=== PATIENT | female | born 1960 | race Caucasian/White ===

== ENCOUNTER 2017-04-08 13:12 | Inpatient (IN) | payer MEDICAID ==
--- NOTE | 2017-04-08 14:01 | EDM.PDOC ---
{null, ED HPI GENERAL MEDICAL PROBLEM - General Chief Complaint: Respiratory Problem Stated Complaint: SOB/SWELLING Time Seen by Provider: 04/08/17 13:57 Source of Information: Reports: Patient, Family History Limitations: Reports: No Limitations - History of Present Illness INITIAL COMMENTS - FREE TEXT/NARRATIVE: This 56 yo female patient reports to the ED with increased shortness of breath, profound weakness and no bowel movement in 45 days. The patient reports she has not been eating or drinking well over the past few months. The patient reports she has not been drinking alcohol, but has a history of alcohol use/abuse. The patient's sister reports the patient has not been out of her house in weeks. The patient's relative has been bringing her josesito on a regular basis. The patient is no longer to take care of herself or her pets. The patient reports she has noticed swelling in her feet (reports her shoes do not fit). The patient was seen in the ED 1 year ago with a GI bleed, but left against medical advice. The patient does not see a regular provider and has not been seen by a healthcare professional since her last visit in the ED (03/26/16). Onset: Gradual Duration: Week(s):, Constant, Getting Worse Location: Reports: Chest, Abdomen, Generalized Quality: Reports: Dull Severity: Severe Improves with: Reports: None Worsens with: Reports: None Associated Symptoms: Reports: Shortness of Breath, Weakness - Related Data Allergies Allergy/AdvReac Type Severity Reaction Status Date / Time No Known Allergies Allergy Verified 04/08/17 14:26 Home Meds: Home Meds Amlodipine 10 mg PO DAILY 07/02/15 [History] Humira 40 mg IM ASDIRECTED 07/02/15 [History] Lisinipril 40 mg PO DAILY 07/02/15 [History] Methotrexate 4 mg PO WEEKLY 07/02/15 [History] predniSONE [Prednisone] 1 tab PO DAILY 07/02/15 [History] Calcium/Vit B12/FA/Pyridoxine [Folic Acid-Vit B6-Vit B12 Tab] 1 each PO DAILY [History] traMADol [Ultram] 50 mg PO Q6H PRN 03/26/16 [History] Past Medical History Cardiovascular History: Reports: Hypertension Genitourinary History: Reports: None Other OB/BYN History: Had hysterectory about 10 years ago Musculoskeletal History: Reports: Other (See Below) Other Musculoskeletal History: hx knee fx - Past Surgical History Female Surgical History: Reports: Hysterectomy Social & Family History - Tobacco Use Smoking Status *Q: Current Every Day Smoker Years of Tobacco use: 30 Packs/Tins Daily: 1 Used Tobacco, but Quit: No Second Hand Smoke Exposure: No - Alcohol Use Days Per Week of Alcohol Use: 4 Number of Drinks Per Day: 1 Total Drinks Per Week: 4 - Recreational Drug Use Recreational Drug Use: No ED ROS GENERAL - Review of Systems Review Of Systems: ROS reveals no pertinent complaints other than HPI. ED EXAM, GENERAL - Physical Exam Exam: See Below Exam Limited By: No Limitations General Appearance: Alert, WD/WN, Severe Distress, Thin Eye Exam: Bilateral Eye: EOMI, Normal Inspection, PERRL Ears: Normal External Exam, Normal Canal, Hearing Grossly Normal, Normal TMs Nose: Normal Inspection, Normal Mucosa, No Blood Throat/Mouth: Normal Inspection, Normal Lips, Normal Teeth, Normal Gums, Normal Oropharynx, Normal Voice, No Airway Compromise Head: Atraumatic, Normocephalic Neck: Normal Inspection, Supple, Non-Tender, Full Range of Motion Respiratory/Chest: Rhonchi (diffuse), Wheezing (through out) Cardiovascular: Normal Peripheral Pulses, Regular Rate, Rhythm, No Edema, No Gallop, No JVD, No Murmur, No Rub GI/Abdominal: Normal Bowel Sounds, Soft, Non-Tender, No Organomegaly, No Distention, No Abnormal Bruit, No Mass (Female) Exam: Deferred Rectal (Female) Exam: Deferred Back Exam: Normal Inspection, Full Range of Motion, NT Extremities: Normal Inspection, Normal Range of Motion, Non-Tender, Normal Capillary Refill, No Pedal Edema Neurological: Alert, Oriented, CN II-XII Intact, Normal Cognition Psychiatric: Depressed Mood, Flat Affect Skin Exam: Warm, Dry, Intact, Normal Color, No Rash Lymphatic: No Adenopathy Course - Vital Signs Last Recorded V/S: Last Vital Signs Temp 35.9 C 04/08/17 13:30 Pulse 96 04/08/17 13:30 Resp 24 H 04/08/17 13:30 BP 113/85 04/08/17 13:30 Pulse Ox 96 04/08/17 13:30 - Orders/Labs/Meds Orders: Active Orders 24 hr Category Date Time Status EKG Documentation Completion [RC] URGENT Care 04/08/17 14:51 Active Chest 2V [CR] Urgent Exams 04/08/17 13:49 Taken CULTURE BLOOD [BC] Stat Lab 04/08/17 14:03 Received CULTURE URINE [RM] Stat Lab 04/08/17 15:00 Received Potassium Chloride [KCl 10 MEQ in Water 100 ML] 10 meq Med 04/08/17 16:26 Ordered Premix Bag 1 bag IV ONETIME Sodium Chloride 0.9% [Normal Saline] 1,000 ml Med 04/08/17 16:26 Ordered IV .BOLUS Labs: Laboratory Tests 04/08/17 04/08/17 04/08/17 Range/Units 14:03 14:03 14:03 WBC 4.6 L (5.0-10.0) 10^3/uL RBC 3.30 L (4.2-5.4) 10^6/uL Hgb 11.8 L (12.0-16.0) g/dL Hct 34.8 L (37.0-47.0) % MCV 105.5 H (80-100) fL MCH 35.8 H (27.0-34.0) pg MCHC 33.9 (33.0-35.0) g/dL Plt Count 117 L (150-450) 10^3/uL Neut % (Auto) 61.9 (42.2-75.2) % Lymph % (Auto) 22.9 (20.5-50.1) % [place] % (Auto) 12.6 H (2-8) % Eos % (Auto) 1.7 (1.0-3.0) % Baso % (Auto) 0.9 (0.0-1.0) % Sodium 134 L (135-145) mmol/L Potassium 2.4 L (3.6-5.0) mmol/L Chloride 93 L (101-111) mmol/L Carbon Dioxide 26.0 (21.0-31.0) mmol/L Anion Gap 17.4 BUN 6 L (7-18) mg/dL Creatinine 0.6 (0.6-1.3) mg/dL Est Cr Clr Drug Dosing 92.15 mL/min Estimated GFR (MDRD) > 60 BUN/Creatinine Ratio 10.00 Glucose 82 (74-105) mg/dL Lactic Acid (0.5-2.2) mmol/L Calcium 8.5 (8.4-10.2) mg/dl Magnesium 1.3 L (1.8-2.5) mg/dL Total Bilirubin 2.6 H (0.2-1.0) mg/dL AST 433 H (10-42) IU/L ALT 110 H (10-60) IU/L Alkaline Phosphatase 328 H (42-121) IU/L Ammonia 21 (11-35) umol/L Troponin I (0.00-0.02) ng/ml Total Protein 6.8 (6.7-8.2) g/dl Albumin 3.1 L (3.2-5.5) g/dl Globulin 3.7 Albumin/Globulin Ratio 0.84 Amylase 91 (28-100) U/L Lipase 153 H (22-51) U/L Urine Color (YELLOW) Urine Appearance (CLEAR) Urine pH (5.0-9.0) Ur Specific [place] (1.005-1.030) Urine Protein (NEGATIVE) Urine Glucose (UA) (NEGATIVE) Urine Ketones (NEGATIVE) mg/dL Urine Occult Blood (NEGATIVE) Urine Nitrite (NEGATIVE) Urine Bilirubin (NEGATIVE) Urine Urobilinogen (0.2-1.0) mg/dL Ur Leukocyte Esterase (NEGATIVE) Urine RBC /HPF Urine WBC (0-5/HPF) /HPF Ur Epithelial Cells /HPF Urine Bacteria (0-FEW/HPF) /HPF Urine Mucus /LPF Urinalysis Comment Salicylates < 4 Urine Opiates Screen (NEGATIVE) Ur Oxycodone Screen (NEGATIVE) Urine Methadone Screen (NEGATIVE) Acetaminophen < 10 Ur Barbiturates Screen (NEGATIVE) U Tricyclic Antidepress (NEGATIVE) Ur Phencyclidine Scrn (NEGATIVE) Ur Amphetamine Screen (NEGATIVE) U Methamphetamines Scrn (NEGATIVE) Urine MDMA Screen (NEGATIVE) U Benzodiazepines Scrn (NEGATIVE) Urine Cocaine Screen (NEGATIVE) U Marijuana (THC) Screen (NEGATIVE) Ethyl Alcohol < 5 mg/dL 04/08/17 04/08/17 04/08/17 Range/Units 14:03 14:03 14:52 WBC (5.0-10.0) 10^3/uL RBC (4.2-5.4) 10^6/uL Hgb (12.0-16.0) g/dL Hct (37.0-47.0) % MCV (80-100) fL MCH (27.0-34.0) pg MCHC (33.0-35.0) g/dL Plt Count (150-450) 10^3/uL Neut % (Auto) (42.2-75.2) % Lymph % (Auto) (20.5-50.1) % [place] % (Auto) (2-8) % Eos % (Auto) (1.0-3.0) % Baso % (Auto) (0.0-1.0) % Sodium (135-145) mmol/L Potassium (3.6-5.0) mmol/L Chloride (101-111) mmol/L Carbon Dioxide (21.0-31.0) mmol/L Anion Gap BUN (7-18) mg/dL Creatinine (0.6-1.3) mg/dL Est Cr Clr Drug Dosing mL/min Estimated GFR (MDRD) BUN/Creatinine Ratio Glucose (74-105) mg/dL Lactic Acid 1.9 (0.5-2.2) mmol/L Calcium (8.4-10.2) mg/dl Magnesium (1.8-2.5) mg/dL Total Bilirubin (0.2-1.0) mg/dL AST (10-42) IU/L ALT (10-60) IU/L Alkaline Phosphatase (42-121) IU/L Ammonia (11-35) umol/L Troponin I < 0.02 (0.00-0.02) ng/ml Total Protein (6.7-8.2) g/dl Albumin (3.2-5.5) g/dl Globulin Albumin/Globulin Ratio Amylase (28-100) U/L Lipase (22-51) U/L Urine Color (YELLOW) Urine Appearance (CLEAR) Urine pH (5.0-9.0) Ur Specific [place] (1.005-1.030) Urine Protein (NEGATIVE) Urine Glucose (UA) (NEGATIVE) Urine Ketones (NEGATIVE) mg/dL Urine Occult Blood (NEGATIVE) Urine Nitrite (NEGATIVE) Urine Bilirubin (NEGATIVE) Urine Urobilinogen (0.2-1.0) mg/dL Ur Leukocyte Esterase (NEGATIVE) Urine RBC /HPF Urine WBC (0-5/HPF) /HPF Ur Epithelial Cells /HPF Urine Bacteria (0-FEW/HPF) /HPF Urine Mucus /LPF Urinalysis Comment Salicylates Urine Opiates Screen Negative (NEGATIVE) Ur Oxycodone Screen Negative (NEGATIVE) Urine Methadone Screen Negative (NEGATIVE) Acetaminophen Ur Barbiturates Screen Negative (NEGATIVE) U Tricyclic Antidepress Negative (NEGATIVE) Ur Phencyclidine Scrn Negative (NEGATIVE) Ur Amphetamine Screen Negative (NEGATIVE) U Methamphetamines Scrn Negative (NEGATIVE) Urine MDMA Screen Negative (NEGATIVE) U Benzodiazepines Scrn Negative (NEGATIVE) Urine Cocaine Screen Negative (NEGATIVE) U Marijuana (THC) Screen Negative (NEGATIVE) Ethyl Alcohol mg/dL 04/08/17 Range/Units 14:52 WBC (5.0-10.0) 10^3/uL RBC (4.2-5.4) 10^6/uL Hgb (12.0-16.0) g/dL Hct (37.0-47.0) % MCV (80-100) fL MCH (27.0-34.0) pg MCHC (33.0-35.0) g/dL Plt Count (150-450) 10^3/uL Neut % (Auto) (42.2-75.2) % Lymph % (Auto) (20.5-50.1) % [place] % (Auto) (2-8) % Eos % (Auto) (1.0-3.0) % Baso % (Auto) (0.0-1.0) % Sodium (135-145) mmol/L Potassium (3.6-5.0) mmol/L Chloride (101-111) mmol/L Carbon Dioxide (21.0-31.0) mmol/L Anion Gap BUN (7-18) mg/dL Creatinine (0.6-1.3) mg/dL Est Cr Clr Drug Dosing mL/min Estimated GFR (MDRD) BUN/Creatinine Ratio Glucose (74-105) mg/dL Lactic Acid (0.5-2.2) mmol/L Calcium (8.4-10.2) mg/dl Magnesium (1.8-2.5) mg/dL Total Bilirubin (0.2-1.0) mg/dL AST (10-42) IU/L ALT (10-60) IU/L Alkaline Phosphatase (42-121) IU/L Ammonia (11-35) umol/L Troponin I (0.00-0.02) ng/ml Total Protein (6.7-8.2) g/dl Albumin (3.2-5.5) g/dl Globulin Albumin/Globulin Ratio Amylase (28-100) U/L Lipase (22-51) U/L Urine Color Brown (YELLOW) Urine Appearance Turbid (CLEAR) Urine pH 7.0 (5.0-9.0) Ur Specific [place] 1.020 (1.005-1.030) Urine Protein >=300 H (NEGATIVE) Urine Glucose (UA) 100 H (NEGATIVE) Urine Ketones 40 H (NEGATIVE) mg/dL Urine Occult Blood Negative (NEGATIVE) Urine Nitrite Positive H (NEGATIVE) Urine Bilirubin Large H (NEGATIVE) Urine Urobilinogen >=8.0 H (0.2-1.0) mg/dL Ur Leukocyte Esterase Negative (NEGATIVE) Urine RBC 0-5 /HPF Urine WBC 0-5 (0-5/HPF) /HPF Ur Epithelial Cells Many H /HPF Urine Bacteria Moderate H (0-FEW/HPF) /HPF Urine Mucus Moderate H /LPF Urinalysis Comment Salicylates Urine Opiates Screen (NEGATIVE) Ur Oxycodone Screen (NEGATIVE) Urine Methadone Screen (NEGATIVE) Acetaminophen Ur Barbiturates Screen (NEGATIVE) U Tricyclic Antidepress (NEGATIVE) Ur Phencyclidine Scrn (NEGATIVE) Ur Amphetamine Screen (NEGATIVE) U Methamphetamines Scrn (NEGATIVE) Urine MDMA Screen (NEGATIVE) U Benzodiazepines Scrn (NEGATIVE) Urine Cocaine Screen (NEGATIVE) U Marijuana (THC) Screen (NEGATIVE) Ethyl Alcohol mg/dL Meds: Medications Discontinued Medications Generic Name Dose Route Start Last Admin Trade Name Vianca PRN Reason Stop Dose Admin Potassium Chloride 10 meq/ 100 mls @ 100 mls/hr 04/08/17 14:45 04/08/17 14:59 Premix IV 04/08/17 15:44 100 mls/hr ONETIME ONE Administration Sodium Chloride 1,000 mls @ 999 mls/hr 04/08/17 14:45 04/08/17 14:59 Normal Saline IV 04/08/17 15:45 999 mls/hr .BOLUS ONE Administration Departure - Departure Time of Disposition: 16:27 Disposition: Home, Self-Care 01 Condition: poor Clinical Impression: Hypokalemia, Generalized weakness - Discharge Information Forms: ED Department Discharge Care Plan Goals: Discussed the history, examination, x-ray and lab results with Dr. Stinson. Dr. Stinson accepted the patient for continued evaluation and management as an inpatient at [facility]. - My Orders Last 24 Hours: My Active Orders 04/08/17 13:49 Chest 2V [CR] Urgent 04/08/17 14:03 CULTURE BLOOD [BC] Stat 04/08/17 14:51 EKG Documentation Completion [RC] URGENT 04/08/17 15:00 CULTURE URINE [RM] Stat 04/08/17 16:26 Potassium Chloride [KCl 10 MEQ in Water 100 ML] 10 meq Premix Bag 1 bag IV ONETIME Sodium Chloride 0.9% [Normal Saline] 1,000 ml IV .BOLUS - Assessment/Plan Last 24 Hours: My Active Orders 04/08/17 13:49 Chest 2V [CR] Urgent 04/08/17 14:03 CULTURE BLOOD [BC] Stat 04/08/17 14:51 EKG Documentation Completion [RC] URGENT 04/08/17 15:00 CULTURE URINE [RM] Stat 04/08/17 16:26 Potassium Chloride [KCl 10 MEQ in Water 100 ML] 10 meq Premix Bag 1 bag IV ONETIME Sodium Chloride 0.9% [Normal Saline] 1,000 ml IV .BOLUS }
[2017-04-08 14:35] LABS: CHLORIDE,CL 93 mmol/L (101-111); SODIUM,NA 134 mmol/L (135-145)
[2017-04-08 14:42] LABS: ACETAMINOPHEN < 10
[2017-04-08] MEDS ORDERED: Sodium Chloride 0.9% 1,000 ML IV ONE ×2 (14:45→16:26)
[2017-04-08] MEDS ORDERED: Potassium Chloride 10 MEQ in Premix Bag 1 BAG IV ONE ×2 (14:45→16:26)
[2017-04-08] MEDS ORDERED: Ondansetron 4 MG Tab.DIS PO PRN (18:13)
[2017-04-08] MEDS ORDERED: traMADol 50 MG Tab PO PRN (18:17)
[2017-04-08] MEDS ORDERED: Sodium Chloride 0.9% with KCl 1,000 ML IV SCH (18:30)
[2017-04-08] MEDS: Heparin Sodium 5,000 Units/ML Vial SUBCUT SCH (20:33)
--- NOTE | 2017-04-09 00:15 | HP ---
{null, CHIEF COMPLAINT: Increasing weakness, tiredness. HISTORY OF PRESENT ILLNESS: Ms. Ladonna Roberts is a 56-year-old female with a medical history significant for hypertension, hyperlipidemia, history of depression, chronic low back pain, history of migraine headaches in the past, rheumatoid arthritis as per the chart, chronic alcohol use, chronic tobacco use presented to the ER after her sister helped her come to the ER while she was complaining of increasing weakness, tiredness. She has not gotten out of the house for couple of weeks now, and family members have been helping her to get josesito at home. While in the emergency room, she was noted to have hypokalemia, hypomagnesemia, hyponatremia, elevated liver enzymes suggestive of hepatitis needing admission to the hospital. At this time, the patient complains of increasing weakness and tiredness. She grades the weakness as 7/10 in intensity, which gets aggravated on exertion, relieved with rest. Not associated with any nausea or vomiting. Denies any chest pain. No shortness of breath. No abdominal pain. No diarrhea. The patient claims that she has not moved her bowels in the last 45 days. She has not eaten well in the last few weeks as she is not feeling hungry. She has been drinking at least 2 shots of josesito each day, the last drink was 3 to 4 days back as per the patient, she smokes at least 1 pack of cigarettes a day. She denies any fevers or chills. No cough with sputum. No headaches. No changes in the vision. No gait disturbance as per the patient. The patient denied any history of chest pains on exertion. No history of dyspnea on exertion. No history of orthopnea or paroxysmal nocturnal dyspnea. The patient denied any history of hematemesis, hematochezia, or melenic stools. Normal bowel and bladder habits otherwise. REVIEW OF SYSTEMS: A complete review of systems including skin, ear, nose, and throat, cardiovascular system, respiratory system, gastrointestinal system, genitourinary system, hematology, oncology, neurology, allergy, immunology, constitutional all evaluated and were negative except for the above-said notes. PAST MEDICAL HISTORY: Significant for hypertension, hyperlipidemia, migraine headache, cervical degenerative joint disease, depression, back pain, chronic tobacco use, chronic alcohol use, rheumatoid arthritis as per the chart. PAST SURGICAL HISTORY: Significant for total abdominal hysterectomy with bilateral salpingo-oophorectomy. SOCIAL HISTORY: The patient has been smoking for several years 1 pack of cigarettes a day. She drinks alcohol almost every day. Two shots of joessito each day. Last drink was 3 days back. ALLERGIC HISTORY: No known drug allergies. FAMILY HISTORY: Significant for heart disease in her father, breast cancer in her sister, heart disease in her brother, stroke in her grandfather. PHYSICAL EXAMINATION: VITAL SIGNS: Temperature of 99.1, pulse of 100, blood pressure 131/96, respiratory rate of 20, saturating at 100% on room air. GENERAL APPEARANCE: The patient is well oriented to time, place, and person. Follows commands spontaneously. CARDIOVASCULAR SYSTEM: S1 and S2 heard with normal intensity. No gallops. RESPIRATORY: Clear to auscultation bilaterally. No wheeze. No crepitations. ABDOMEN: Soft. Bowel sounds positive. Nontender. No rigidity. EXTREMITIES: No edema in bilateral lower extremities. NEUROLOGY: No gross focal neurological deficits. HOME MEDICATIONS: Reviewed shows: 1. Ultram 50 mg q.6 hours as needed for pain. 2. Prednisone 5 mg daily. 3. Lisinopril 40 mg daily. 4. Humira 40 mg IM as directed. 5. Norvasc 10 mg daily. LABS: WBC 4.6, hemoglobin 11.8, hematocrit 34.8, and platelet count 117. Sodium 134, potassium 2.4, chloride 93, bicarb 26, BUN 6, creatinine 0.6, glucose 82, lactic acid 1.9, total bilirubin 2.6, AST 433, ALT 110, alkaline phosphatase 328, ammonia 21. Troponin less than 0.02. Amylase 91 and lipase 153. Urinalysis positive for nitrites, large bilirubin, leukocyte esterase, negative wbc's 0 to 5, moderate bacteria. Blood alcohol level less than 5. ASSESSMENT: 1. Generalized weakness. 2. Acute hyponatremia. 3. Hypokalemia. 4. Hypomagnesemia. 5. Anemia. 6. Chronic alcohol abuse. 7. Chronic tobacco use. 8. Hypertension. 9. Hyperlipidemia. 10.Rheumatoid arthritis. PLAN: 1. The patient presents with increasing weakness, and is noted to have metabolic derangement with hyponatremia, hypokalemia, and magnesemia. We will have her on IV normal saline with potassium chloride and replace with potassium chloride and magnesium. Recheck a basic metabolic panel along with magnesium and phosphorus in the a.m. We will closely follow. 2. Anemia. The patient is noted to have anemia. This could be anemia of chronic disease. She had history of GI bleed in the past, but not recently. We will obtain iron, folate, B12 levels, and a peripheral smear, and replace as needed. 3. History of chronic alcohol use. The patient is educated about alcohol cessation. Strongly encouraged her to quit drinking which she understands and verbalized the same. She was also educated about tobacco cessation. We will have her on nicotine transdermal patch if needed while in the hospital. 4. Hepatitis. The patient is noted to have elevated LFTs. This is mainly from her alcoholic hepatitis. We will recheck a CMP in the a.m. 5. Rheumatoid arthritis. The patient is noted to be on Humira and prednisone. We will continue the same if the patient has been taking that at home. She denies any joint pains at this time. No acute flare-up noted at this time. 6. DVT prophylaxis. We will have her on heparin 5000 subcu q.12 hourly. Given her history of GI bleed in the past, we will cautiously use SCDs for DVT prophylaxis. 7. Hypertension. The patient's blood pressure seems to be in acceptable range. She is noted to be on lisinopril. Continue the same. Avoid any hypotensive episodes. 8. Code status. The patient wants to be DNR/DNI. 9. Discussed with the patient regarding the plan of care. Discussed with Valente Rene from the ER regarding the plan of care. Reviewed the labs and medications. Reviewed the old charts. [facility] /[id number] }
[2017-04-09] MEDS: Sodium Chloride 0.9% with KCl 1,000 ML IV SCH ×2 (04:05→19:21)
[2017-04-09] MEDS: Pantoprazole 40 MG Tab.CR PO SCH (06:16)
[2017-04-09 07:05] LABS: CHLORIDE,CL 96 mmol/L (101-111); SODIUM,NA 131 mmol/L (135-145)
--- NOTE | 2017-04-09 08:16 | CR ---
{null, CLINICAL HISTORY: 56-year-old female complaining of shortness of breath. INTERPRETATION: Mild scoliosis dorsal spine. Slight shaggy accentuation central lung markings with s ome mild air trapping suggesting reactive airway disease but no lung mass, hilar lymphadenopathy or focal lobar pneumonia. Normal cardiac silhouette without alveolar edema or dependent effusion. No atelectasis/collapse. No pneumothorax. CONCLUSION: Mild reactive airway disease. Asthmatic? Smoker ?. No signs of heart failure or lobar pneumonia. }
[2017-04-09] MEDS ORDERED: Lisinopril 20 MG Tab PO SCH (09:00)
[2017-04-09] MEDS: Heparin Sodium 5,000 Units/ML Vial SUBCUT SCH ×2 (09:16→21:18)
[2017-04-09] MEDS: predniSONE 5 MG Tab PO SCH (09:16)
[2017-04-09] MEDS: amLODIPine 5 MG Tab PO SCH (09:17)
[2017-04-09] MEDS: Potassium Chloride 10 MEQ in Premix Bag 1 BAG IV SCH ×4 (11:59→15:38)
[2017-04-09] MEDS: Nicotine 14 MG/24 Hr Patch TRDERM SCH (12:06)
--- NOTE | 2017-04-09 12:25 | PN ---
{null, DATE: 04/09/2017 SUBJECTIVE: Ms. Ladonna Roberts is a 56-year-old female with medical history significant for hypertension, hyperlipidemia, depression, chronic low back pain, migraine headaches in the past and rheumatoid arthritis, chronic alcohol use and chronic tobacco use was admitted to the hospital with complaints of increasing weakness, tiredness, and electrolyte imbalance and hepatitis from her alcohol intake. For the past 24 hours, the patient was continued on IV fluids and required potassium chloride and magnesium supplements. She denies any ongoing chest pain. No shortness of breath. No abdominal pain. No nausea. No vomiting. No diarrhea. No fevers. No chills overnight. REVIEW OF SYSTEMS: Cardiovascular, respiratory, gastrointestinal, neurology, constitutional were all evaluated. PHYSICAL EXAMINATION: Vital signs: Temperature of 97.7, pulse of 80, blood pressure of 101/70, respiratory rate of 20, saturating 97% on room air. General Appearance: Patient is well oriented to time, place, and person. Follows commands spontaneously. Cardiovascular System: S1 and S2 heard with normal intensity. No gallops. Respiratory: Clear to auscultation bilaterally. No wheeze. No crepitations. Abdomen: Soft. Bowel sounds positive. Nontender. No rigidity. Extremities: No edema bilateral lower extremities. Neurology: No gross focal neurological deficit. Skin: No acute rash noted on the skin. MEDICATIONS: Include: 1. Norvasc 10 mg daily. 2. Heparin 5000 subcu q.12 hourly. 3. Lisinopril 10 mg daily. 4. Magnesium oxide 500 mg twice a day. 5. Zofran 4 mg every 4 hours as needed for nausea. 6. Protonix 40 mg daily. 7. Potassium chloride 20 mEq twice a day. 8. Prednisone 5 mg daily. 9. Neutra-Phos 250 mg 3 times a day. 10.Tramadol 50 mg every 6 hours as needed for pain. LABS: Include WBC 3.8, hemoglobin 10.1, hematocrit 29.4, MCV 106.1, and MCH 36.5. Sodium 131, potassium 2.7, chloride 96, bicarb 25, BUN 4, creatinine 0.4, and glucose 78. Phosphorus 1.8, calcium 7.4, magnesium 1.3, and albumin 2.5. ASSESSMENT: 1. Chronic alcohol abuse. 2. Malnutrition from poor oral intake. 3. Hyponatremia. 4. Hypokalemia. 5. Hypomagnesemia. 6. Hypophosphatemia. 7. Hypertension. 8. Hyperlipidemia. 9. Rheumatoid arthritis. 10.Chronic tobacco use. PLAN: 1. Generalized debility. The patient was admitted with generalized debility along with multiple electrolyte imbalance including hyponatremia, hypokalemia, hypomagnesemia, and hypophosphatemia. The patient will be replaced with magnesium IV and also potassium chloride IV. She will be continued on IV normal saline along with potassium chloride. We will recheck a basic metabolic panel in a.m. and we will closely follow. Her generalized debility is also from poor oral intake. The patient is encouraged to have good oral intake. 2. Malnutrition. This is mainly from her poor oral intake and chronic alcohol use. She is noted to have low albumin and low total protein consistent with chronic malnutrition. The patient will be encouraged to have Boost or Ensure with each meals. 3. Chronic alcohol use. The patient is educated about alcohol cessation. We will continue CIWA protocol as needed. Use Ativan as needed for anxiety. We also prescribed nicotine transdermal patch and patient was encouraged to quit smoking. 4. Hypertension. The patient's blood pressure seems to be well controlled. Continue with current antihypertensive medication. Added Norvasc for better blood pressure control. Try to avoid any hypertensive episodes. 5. Rheumatoid arthritis. The patient has been on steroids. Continue the same. 6. DVT prophylaxis. The patient is currently on heparin for DVT prophylaxis, continue the same. 7. Follow with a CBC and a BMP in a.m. 8. Anemia. This could be anemia of chronic disease. Order for B12, folate, and iron studies. Awaiting reports. [facility] /[id number] }
[2017-04-09] MEDS: Phosphorus #1 250 MG Tab PO SCH ×2 (14:36→21:17)
[2017-04-09] MEDS: LORazepam 0.5 MG Tab PO PRN ×2 (17:13→21:17)
[2017-04-09] MEDS: Potassium Chloride 10 MEQ Tab.ER PO SCH (18:18)
[2017-04-09] MEDS ORDERED: Check NICOTINE Patch TRDERM SCH (21:00)
[2017-04-10] MEDS: LORazepam 0.5 MG Tab PO PRN ×3 (01:15→09:38)
[2017-04-10] MEDS: Sodium Chloride 0.9% with KCl 1,000 ML IV SCH (05:32)
[2017-04-10] MEDS: Pantoprazole 40 MG Tab.CR PO SCH (05:33)
[2017-04-10 06:45] LABS: CHLORIDE,CL 107 mmol/L (101-111); SODIUM,NA 137 mmol/L (135-145)
[2017-04-10] MEDS: Potassium Chloride 10 MEQ Tab.ER PO SCH (07:50)
[2017-04-10] MEDS ORDERED: Lisinopril 10 MG Tab PO SCH (09:00)
[2017-04-10] MEDS: amLODIPine 5 MG Tab PO SCH (09:05)
[2017-04-10] MEDS: predniSONE 5 MG Tab PO SCH (09:06)
[2017-04-10] MEDS: Phosphorus #1 250 MG Tab PO SCH (09:07)
[2017-04-10] MEDS: Nicotine 14 MG/24 Hr Patch TRDERM SCH (09:07)
[2017-04-10] MEDS: Heparin Sodium 5,000 Units/ML Vial SUBCUT SCH (09:09)
[2017-04-10] MEDS ORDERED: Phosphorus #1 250 MG Tab PO SCH (09:34)
[2017-04-10 11:21] VITALS: BP 106/78
--- NOTE | 2017-04-10 12:20 | EKG ---
{null, 04/08/2017 - [facility] - Alia 12-lead EKG shows normal sinus rhythm with no significant ST elevation or ST depression noted on this 12-lead EKG. Low voltage precordial leads. Heart rate of 96. [facility] /[id number] }
--- NOTE | 2017-04-11 02:01 | DISCH ---
{null, ADMITTING DIAGNOSES: 1. Generalized weakness. 2. Acute hyponatremia. 3. Acute hypokalemia. 4. Acute hypomagnesemia. 5. Anemia. 6. Chronic alcohol use. DISCHARGE DIAGNOSES: 1. Chronic alcohol use with alcohol-induced hepatitis. 2. Acute hyponatremia, resolved. 3. Acute hypokalemia, resolved. 4. Acute hypomagnesemia and acute hypophosphatemia. 5. Tobacco use, requiring nicotine transdermal patch. HISTORY OF PRESENT ILLNESS: Ms. Ladonna Roberts is a 56-year-old female with medical history significant for hypertension, hyperlipidemia, history of depression, chronic low back pain, migraine headaches in the past, rheumatoid arthritis, chronic alcohol use, and chronic tobacco use, admitted to the hospital with complaints of increasing weakness and tiredness and poor oral intake for the last few days, resulting in malnutrition with low albumin and low total protein secondary to alcohol use. The patient was admitted to the hospital. She was also noted to have acute hyponatremia with sodium of 134, hypokalemia with potassium of 2.4 at the time of admission, which were improved to sodium 137 and potassium 3.8 at the time of discharge. She required IV fluids and IV magnesium and IV potassium chloride supplements. The patient was educated about alcohol cessation and tobacco cessation and strongly encouraged her to quit drinking and smoking, which she understands and verbalized the same. She was prescribed nicotine transdermal patch at the time of discharge. Social Work will be consulted for having her go to treatment center if needed. The patient was explained about the ill effects of drinking alcohol and smoking on her health, which she understands and verbalized the same. The patient wanted to be discharged home. She was noted to have muddy urine at the time of admission, which was probably contaminant and repeat urinalysis was negative. Her blood pressure was on the lower side at times. decreased the Lisinopril to 10 mg and hold the Norvasc. She usually takes prednisone at home. She will be advised to continue taking prednisone for her underlying rheumatoid arthritis. She is discharged home in stable condition. She is advised to follow with her primary care physician in the next 1 week of time. DISCHARGE MEDICATIONS: Include: 1. Tramadol 50 mg every 6 hours as needed for pain. 2. Calcium with vitamin 1 tablet daily. 3. Humira 40 mg intramuscular as directed, once in every 2 weeks. 4. Lorazepam 0.5 mg as needed for anxiety every 8 hours. 5. Lisinopril 10 mg daily. 6. Magnesium oxide 400 mg with meals twice a day. 7. Nicotine transdermal patch 14 mg daily. 8. Neutra-Phos 500 mg three times a day. 9. Potassium chloride 20 mEq once a day. 10.Prednisone 5 mg daily. PHYSICAL EXAMINATION: Vital Signs: On the day of discharge vitals; temperature of 98.9, pulse of 105, blood pressure of 94/72, saturating at 100% on room air. Respiratory rate of 20. General Appearance: Patient is well-oriented to time, place, and person. Follows commands spontaneously. Cardiovascular: S1, S2 heard with normal intensity. No gallops. Respiratory: Clear to auscultation bilaterally. No wheeze. No crepitations. Abdomen: Soft. Bowel sounds positive. Nontender. No rigidity. Extremities: No edema bilateral lower extremities. Neurology: No gross focal neurological deficits. CONDITION ON ADMISSION: Poor. CONDITION ON DISCHARGE: Stable. ACTIVITY: As tolerated. DIET: Cardiac healthy diet. FOLLOWUP: Follow with primary care physician in the next 1 week of time. Secondary to her low blood pressure, we changed the lisinopril to 10 mg daily. She will follow with the primary care physician as scheduled. Spent over 35 minutes of time in evaluating and treating this patient and formulated the discharge plan and discussing with the patient regarding the treatment plan. [facility] /[id number] MTDD }
== END 2017-04-10 12:15 | disposition home or self-care (01) | DRG 433 ==
LOC: DL.ED 13:12 → DL.MS 16:59
PROVIDERS: ADMIT Internal Medicine; ATTEND Internal Medicine
DX: K70.10 Alcoholic hepatitis without ascites (principal); E46 Unspecified protein-calorie malnutrition; E87.1 Hypo-osmolality and hyponatremia; E87.6 Hypokalemia; F10.20 Alcohol dependence, uncomplicated; E83.42 Hypomagnesemia; E83.39 Other disorders of phosphorus metabolism; M54.5 Low back pain; G89.29 Other chronic pain; F17.210 Nicotine dependence, cigarettes, uncomplicated; M06.9 Rheumatoid arthritis, unspecified; Z79.899 Other long term (current) drug therapy; Z79.52 Long term (current) use of systemic steroids; F32.9 Major depressive disorder, single episode, unspecified; D64.9 Anemia, unspecified; R06.02 Shortness of breath
CPT/HCPCS: 36415; 71020; 80048; 80053; 80076; 80305; 81001; 82140; 82150; 82607; 82728; 82746; 82962; 83540; 83605; 83690; 83735; 84100; 84132; 84466; 84484; 85025; 85027; 87040; 87086; 93005; 96365; 99285; A9270-GY; G0480; J1644; J3475; J3480; J7030

== ENCOUNTER 2017-04-28 12:27 | Inpatient (IN) | payer MEDICAID ==
--- NOTE | 2017-04-28 12:43 | EDM.PDOC ---
ED HPI GENERAL MEDICAL PROBLEM - General Chief Complaint: Drug or Alcohol Abuse Stated Complaint: CANT DO ANY ADL'S Time Seen by Provider: 04/28/17 12:43 Source of Information: Reports: Patient, Family, Old Records, RN, RN Notes Reviewed - History of Present Illness INITIAL COMMENTS - FREE TEXT/NARRATIVE: Complaining of fever, chills, flank pain, nausea and no appetite. Began not feeling well 3-4 days ago and keeps getting worse. Has chronic numbness in legs. Denies recent alcohol use but later admits to chronic daily drinking. Severity: Severe Improves with: Reports: None Worsens with: Reports: None Associated Symptoms: Reports: No Other Symptoms Bilateral Leg Pain Score (Numeric/FACES): 7 - Related Data Allergies Allergy/AdvReac Type Severity Reaction Status Date / Time No Known Allergies Allergy Verified 04/08/17 17:02 Home Meds: Home Meds Humira 40 mg IM ASDIRECTED 07/02/15 [History] predniSONE [Prednisone] 5 mg PO DAILY 07/02/15 [History] LORazepam [Ativan] 0.5 mg PO Q8H PRN #20 tablet 04/10/17 [Rx] Lisinopril [Prinivil] 10 mg PO DAILY #30 tablet 04/10/17 [Rx] Magnesium Oxide 400 mg PO BIDM #20 tablet 04/10/17 [Rx] Nicotine [Habitrol] 14 mg TRDERM DAILY #7 patch 04/10/17 [Rx] Phosphorus #1 [Neutra-Phos] 500 mg PO TID #30 tablet 04/10/17 [Rx] Ciprofloxacin HCl 250 mg PO BID #10 tablet 04/30/17 [Rx] Folic Acid 1 mg PO DAILY #14 tablet 04/30/17 [Rx] Multivitamins,Therapeutic [Thera] 1 each PO BEDTIME #30 tablet 04/30/17 [Rx] Thiamine [Vitamin B-1] 100 mg PO BEDTIME #14 tablet 04/30/17 [Rx] Past Medical History Cardiovascular History: Reports: Hypertension Gastrointestinal History: Reports: Chronic Constipation Genitourinary History: Reports: None Other OB/BYN History: Had hysterectory about 10 years ago Musculoskeletal History: Reports: Other (See Below) Other Musculoskeletal History: hx knee fx with no surgical repair Neurological History: Reports: Neuropathy, Peripheral, Other (See Below) Other Neuro History: numbness/tingling to left leg and bilateral feet Psychiatric History: Reports: Anxiety, Depression - Past Surgical History Female Surgical History: Reports: Hysterectomy, Salpingo-Oophorectomy Social & Family History - Family History Family Medical History: Noncontributory - Tobacco Use Smoking Status *Q: Current Every Day Smoker Years of Tobacco use: 30 Packs/Tins Daily: 1 Used Tobacco, but Quit: No Second Hand Smoke Exposure: No - Caffeine Use Caffeine Use: Reports: Soda - Alcohol Use Days Per Week of Alcohol Use: 4 Number of Drinks Per Day: 2 Total Drinks Per Week: 8 - Recreational Drug Use Recreational Drug Use: No ED ROS GENERAL - Review of Systems Review Of Systems: ROS reveals no pertinent complaints other than HPI. ED EXAM, GENERAL - Physical Exam Exam: See Below Exam Limited By: No Limitations General Appearance: Other (chronically ill appearing. ) Eye Exam: Bilateral Eye: Normal Inspection Ears: Normal External Exam, Normal Canal, Hearing Grossly Normal, Normal TMs Nose: Normal Inspection, Normal Mucosa, No Blood Throat/Mouth: Other (dry oral membranes) Head: Atraumatic, Normocephalic Neck: Normal Inspection, Supple, Non-Tender, Full Range of Motion Respiratory/Chest: Decreased Breath Sounds (in bilateral bases. Course vesicular breath sounds. ) Cardiovascular: Normal Peripheral Pulses, Regular Rate, Rhythm, No Edema, No Gallop, No JVD, No Murmur, No Rub GI/Abdominal: Tender (epigastrium.) (Female) Exam: Deferred Rectal (Female) Exam: Deferred Back Exam: Normal Inspection, Full Range of Motion, NT Extremities: Normal Inspection, Normal Range of Motion, Non-Tender, Normal Capillary Refill, No Pedal Edema Neurological: Alert, Oriented, CN II-XII Intact, Normal Cognition, Normal Gait, Normal Reflexes, No Motor/Sensory Deficits Psychiatric: Anxious Skin Exam: Warm, Dry, Intact, Normal Color, No Rash Course - Vital Signs Last Recorded V/S: Last Vital Signs Temp 36.8 C 04/30/17 07:00 Pulse 80 04/30/17 07:00 Resp 20 04/30/17 07:00 BP 128/93 H 04/30/17 08:24 Pulse Ox 100 04/30/17 07:00 - Orders/Labs/Meds Labs: Laboratory Tests 04/28/17 04/28/17 04/28/17 Range/Units 13:50 13:50 13:50 WBC 5.1 (5.0-10.0) 10^3/uL RBC 3.05 L (4.2-5.4) 10^6/uL Hgb 11.4 L (12.0-16.0) g/dL Hct 33.2 L (37.0-47.0) % MCV 108.9 H (80-100) fL MCH 37.4 H (27.0-34.0) pg MCHC 34.3 (33.0-35.0) g/dL Plt Count 139 L (150-450) 10^3/uL Neut % (Auto) 63.4 (42.2-75.2) % Lymph % (Auto) 24.9 (20.5-50.1) % Grainger % (Auto) 8.5 H (2-8) % Eos % (Auto) 2.6 (1.0-3.0) % Baso % (Auto) 0.6 (0.0-1.0) % Sodium 133 L (135-145) mmol/L Potassium 2.8 L (3.6-5.0) mmol/L Chloride 94 L (101-111) mmol/L Carbon Dioxide 26.0 (21.0-31.0) mmol/L Anion Gap 15.8 BUN 10 (7-18) mg/dL Creatinine 0.7 (0.6-1.3) mg/dL Est Cr Clr Drug Dosing 78.41 mL/min Estimated GFR (MDRD) > 60 BUN/Creatinine Ratio 14.28 Glucose 101 (74-105) mg/dL Calcium 8.7 (8.4-10.2) mg/dl Phosphorus 3.2 (2.5-4.6) mg/dL Magnesium 1.4 L (1.8-2.5) mg/dL Total Bilirubin 2.2 H (0.2-1.0) mg/dL AST 255 H (10-42) IU/L ALT 96 H (10-60) IU/L Alkaline Phosphatase 287 H (42-121) IU/L Creatine Kinase 26 (26-174) IU/L Total Protein 6.9 (6.7-8.2) g/dl Albumin 3.0 L (3.2-5.5) g/dl Globulin 3.9 Albumin/Globulin Ratio 0.77 Vitamin B12 (180-914) pg/mL Folate ng/mL Urine Color (YELLOW) Urine Appearance (CLEAR) Urine pH (5.0-9.0) Ur Specific [place] (1.005-1.030) Urine Protein (NEGATIVE) Urine Glucose (UA) (NEGATIVE) Urine Ketones (NEGATIVE) Urine Occult Blood (NEGATIVE) Urine Nitrite (NEGATIVE) Urine Bilirubin (NEGATIVE) Urine Urobilinogen (0.2-1.0) mg/dL Ur Leukocyte Esterase (NEGATIVE) Urine RBC /HPF Urine WBC (0-5/HPF) /HPF Ur Epithelial Cells /HPF Urine Bacteria (0-FEW/HPF) /HPF Urine Mucus /LPF Urine Yeast (0/HPF) /HPF Ethyl Alcohol < 5 mg/dL 04/28/17 04/28/17 04/28/17 Range/Units 13:50 13:50 14:10 WBC (5.0-10.0) 10^3/uL RBC (4.2-5.4) 10^6/uL Hgb (12.0-16.0) g/dL Hct (37.0-47.0) % MCV (80-100) fL MCH (27.0-34.0) pg MCHC (33.0-35.0) g/dL Plt Count (150-450) 10^3/uL Neut % (Auto) (42.2-75.2) % Lymph % (Auto) (20.5-50.1) % Grainger % (Auto) (2-8) % Eos % (Auto) (1.0-3.0) % Baso % (Auto) (0.0-1.0) % Sodium (135-145) mmol/L Potassium (3.6-5.0) mmol/L Chloride (101-111) mmol/L Carbon Dioxide (21.0-31.0) mmol/L Anion Gap BUN (7-18) mg/dL Creatinine (0.6-1.3) mg/dL Est Cr Clr Drug Dosing mL/min Estimated GFR (MDRD) BUN/Creatinine Ratio Glucose (74-105) mg/dL Calcium (8.4-10.2) mg/dl Phosphorus (2.5-4.6) mg/dL Magnesium (1.8-2.5) mg/dL Total Bilirubin (0.2-1.0) mg/dL AST (10-42) IU/L ALT (10-60) IU/L Alkaline Phosphatase (42-121) IU/L Creatine Kinase (26-174) IU/L Total Protein (6.7-8.2) g/dl Albumin (3.2-5.5) g/dl Globulin Albumin/Globulin Ratio Vitamin B12 622 (180-914) pg/mL Folate 12.4 ng/mL Urine Color Yumiko (YELLOW) Urine Appearance Turbid (CLEAR) Urine pH 6.0 (5.0-9.0) Ur Specific [place] 1.020 (1.005-1.030) Urine Protein 100 H (NEGATIVE) Urine Glucose (UA) 100 H (NEGATIVE) Urine Ketones 40 H (NEGATIVE) Urine Occult Blood Negative (NEGATIVE) Urine Nitrite Positive H (NEGATIVE) Urine Bilirubin Large H (NEGATIVE) Urine Urobilinogen >=8.0 H (0.2-1.0) mg/dL Ur Leukocyte Esterase Negative (NEGATIVE) Urine RBC 5-10 H /HPF Urine WBC 5-10 H (0-5/HPF) /HPF Ur Epithelial Cells Many H /HPF Urine Bacteria Few (0-FEW/HPF) /HPF Urine Mucus Many H /LPF Urine Yeast Few H (0/HPF) /HPF Ethyl Alcohol mg/dL Meds: Medications Discontinued Medications Generic Name Dose Route Start Last Admin Trade Name Vianca PRN Reason Stop Dose Admin Enoxaparin Sodium 40 mg 04/29/17 09:00 04/30/17 08:22 Lovenox SUBCUT 40 mg DAILY PEARL Administration Fluconazole 200 mg 04/28/17 14:41 04/28/17 14:59 Diflucan PO 04/28/17 14:42 200 mg ONETIME ONE Administration Folic Acid 1 mg 04/29/17 12:00 04/30/17 08:24 Folic Acid PO 1 mg DAILY PEARL Administration Potassium Chloride 10 meq/ 100 mls @ 100 mls/hr 04/28/17 14:40 04/28/17 15:01 Premix IV 04/28/17 15:39 100 mls/hr ONETIME ONE Administration Ceftriaxone Sodium 1 gm/ 50 mls @ 100 mls/hr 04/28/17 14:42 04/28/17 17:39 Sodium Chloride IV 06/07/17 15:11 Not Given ONETIME ONE Multivitamins/Minerals 10 ml/ 1,011.2 mls @ 999 mls/hr 04/28/17 14:46 15:01 Thiamine HCl 100 mg/ Folic IV 04/28/17 15:46 999 mls/hr Acid 1 mg/ Lactated Ringer's .BOLUS ONE Administration Magnesium Sulfate/Dextrose 1 100 mls @ 100 mls/hr 04/28/17 16:18 04/28/17 18: 02 gm/ Premix IV 04/28/17 17:17 100 mls/hr ONETIME ONE Administration Ceftriaxone Sodium 1 gm/ 50 mls @ 100 mls/hr 04/28/17 17:00 04/28/17 17:30 Sodium Chloride IV 100 mls/hr ONETIME PEARL Administration Lisinopril 10 mg 04/29/17 09:00 04/30/17 08:24 Prinivil PO 10 mg DAILY PEARL Administration Loperamide HCl 2 mg 04/30/17 10:51 Imodium PO Q6H PRN Diarrhea Lorazepam 0 mg 04/28/17 19:02 Ativan IVPUSH ASDIRECTED PRN agitation Protocol Magnesium Oxide 400 mg 04/28/17 16:15 04/28/17 17:21 Magnesium Oxide PO Not Given BIDM PEARL Magnesium Oxide 500 mg 04/28/17 18:00 04/30/17 08:23 Magnesium Oxide PO 500 mg BIDM PEARL Administration Multivitamins 1 each 04/29/17 21:00 04/29/17 20:43 Thera PO 1 each BEDTIME PEARL Administration Nicotine 14 mg 04/29/17 09:00 Habitrol TRDERM DAILY PEARL Nicotine 14 mg 04/28/17 19:00 04/30/17 08:23 Habitrol TRDERM 14 mg DAILY PEARL Administration Ondansetron HCl 4 mg 04/28/17 16:19 Zofran Odt PO Q6H PRN nausea, able to take PO Potassium Chloride 20 meq 04/29/17 08:00 04/30/17 08:24 Klor-Con 10 PO 20 meq DAILY@0800 PEARL Administration Potassium Chloride 40 meq 04/28/17 16:18 04/28/17 17:22 Klor-Con 10 PO 04/28/17 16:19 40 meq ONETIME ONE Administration Potassium Chloride 40 meq 04/29/17 11:24 04/29/17 12:16 Klor-Con 10 PO 04/29/17 11:25 40 meq ONETIME ONE Administration Prednisone 5 mg 04/29/17 09:00 04/30/17 08:24 Prednisone PO 5 mg DAILY PEARL Administration Sodium Chloride 10 ml 04/28/17 14:36 04/28/17 17:31 Saline Flush FLUSH 10 ml ASDIRECTED PRN Administration Keep Vein Open Sodium Phosphate 500 mg 04/28/17 21:00 04/30/17 08:23 Neutra-Phos PO 500 mg TID PEARL Administration Thiamine HCl 100 mg 04/29/17 21:00 04/29/17 20:43 Vitamin B-1 PO 100 mg BEDTIME PEARL Administration Departure - Departure Time of Disposition: 14:43 (admit to Dr. Echeverria) Disposition: Admitted As Inpatient 67 Condition: serious Clinical Impression: Hypokalemia, Hyponatremia, Generalized weakness UTI (urinary tract infection) Qualifiers: Urinary tract infection type: site unspecified Hematuria presence: without hematuria Qualified Code(s): N39.0 - Urinary tract infection, site not specified Peripheral neuropathy Qualifiers: Peripheral neuropathy type: polyneuropathy, unspecified Qualified Code(s): G62.9 - Polyneuropathy, unspecified - Discharge Information
[2017-04-28 14:19] LABS: CHLORIDE,CL 94 mmol/L (101-111); SODIUM,NA 133 mmol/L (135-145)
[2017-04-28] MEDS ORDERED: Potassium Chloride 10 MEQ in Premix Bag 1 BAG IV ONE (14:40)
[2017-04-28] MEDS ORDERED: Fluconazole 100 MG Tab PO ONE (14:41)
[2017-04-28] MEDS ORDERED: cefTRIAXone 1 GM in Sodium Chloride 0.9% 50 ML IV ONE (14:42)
[2017-04-28] MEDS ORDERED: MVI, Adult with Vitamin K 10 ML, Thiamine 100 MG, Folic Acid 1 MG in Lactated Ringers 1... IV ONE ×4 (14:46)
[2017-04-28] MEDS: Sodium Chloride 0.9% 10 ML Syringe FLUSH PRN ×2 (14:47→17:31)
--- NOTE | 2017-04-28 16:13 | PCM.HP ---
[id number]: Patient - History of Present Illness Initial Comments - Free Text/Narative: patient is a 56-year-old female was admitted here because of weakness. At the emergency room, he was noted to have low potassium and findings suggestive of urinary tract infection.patient reports that she has had 8 episodes of falls in the last one week.it seems as if her legs aren't able to withstand a weight of her body. Today, she fell and her sister works in the hospital brought her to the emergency room. Patient is having numbness and tingling in both of her legs the last one month. She has chronic low back pain however denies any worsening of it. She reports history of diarrhea although she cannot clearly cannot raise it; she also had episodes of vomiting; denies any blood in the stools or blood in the vomitus; she has been having shortness of breath is on exertion and chronic cough which she attributes from smoking; patient has history of alcoholism although she reports to me that her last drink was when she was admitted here last I april 18; she uses drink 2-3 shots of josesito 3 times a week. Bilateral Leg Pain Score (Numeric/FACES): 7 - Related Data Allergies/Adverse Reactions: Allergies Allergy/AdvReac Type Severity Reaction Status Date / Time No Known Allergies Allergy Verified 06/17/17 18:03 Home Medications: Home Meds LORazepam [Ativan] 0.5 mg PO Q8H PRN #20 tablet 04/10/17 [Rx] Folic Acid 1 mg PO DAILY #14 tablet 04/30/17 [Rx] Thiamine [Vitamin B-1] 100 mg PO BEDTIME #14 tablet 04/30/17 [Rx] Phosphorus #1 [Neutra-Phos] 250 mg PO TID 06/02/17 [History] Magnesium Oxide [Magnesium] 400 mg PO TID 30 Days 06/05/17 [Rx] metroNIDAZOLE [Flagyl] 500 mg PO Q8H 14 Days 06/05/17 [Rx] predniSONE [Prednisone] 5 mg PO DAILY 30 Days 06/05/17 [Rx] Lisinopril [Prinivil] 40 mg PO DAILY 06/17/17 [History] Potassium Chloride 20 meq PO TID 06/17/17 [History] Past Medical History HEENT History: Reports: Other (See Below) Other HEENT History: reading glasses Cardiovascular History: Reports: Hypertension, SOB on Exertion Respiratory History: Reports: Other (See Below) Other Respiratory History: bronchitis in past Gastrointestinal History: Reports: Chronic Constipation Genitourinary History: Reports: None, Other (See Below) Other Genitourinary History: current UTI Other OB/BYN History: Had hysterectory about 10 years ago Musculoskeletal History: Reports: Other (See Below) Other Musculoskeletal History: hx knee fx with no surgical repair Neurological History: Reports: Neuropathy, Peripheral, Other (See Below) Other Neuro History: numbness/tingling to left leg and bilateral feet Psychiatric History: Reports: Anxiety, Depression Other Psychiatric History: pt denies Endocrine/Metabolic History: Reports: Osteopenia - Infectious Disease History Other Infectious Disease History: pt denies - Past Surgical History GI Surgical History: Reports: Colonoscopy Female Surgical History: Reports: Hysterectomy, Salpingo-Oophorectomy Social & Family History - Family History Family Medical History: Noncontributory - Tobacco Use Smoking Status *Q: Current Every Day Smoker Years of Tobacco use: 30 Packs/Tins Daily: 1 Used Tobacco, but Quit: No Second Hand Smoke Exposure: No - Caffeine Use Caffeine Use: Reports: Soda - Alcohol Use Days Per Week of Alcohol Use: 4 Number of Drinks Per Day: 2 Total Drinks Per Week: 8 - Recreational Drug Use Recreational Drug Use: No H&P Review of Systems - Review of Systems: Review Of Systems: See Below General: Reports: Weakness Cardiovascular: Reports: Dyspnea on Exertion Gastrointestinal: Reports: Diarrhea, Nausea, Vomiting Genitourinary: Reports: No Symptoms Musculoskeletal: Reports: Other (chronic low back pain) Psychiatric: Reports: Other (denies any depressed mood) Hematologic/Lymphatic: Reports: Anemia Exam - Exam Exam: See Below - Vital Signs Vital Signs: Last Vital Signs Temp 37.2 C 04/28/17 12:45 Pulse 112 H 04/28/17 13:58 Resp 20 04/28/17 13:58 BP 111/86 04/28/17 13:58 Pulse Ox 100 04/28/17 13:58 Weight: 54.885 kg - Exam General: Alert, Oriented Lungs: Normal Respiratory Effort, Rhonchi Cardiovascular: Regular Rate, Regular Rhythm Abdomen: Normal Bowel Sounds, Soft Peripheral Pulses: 2+: Dorsalis Pedis (L), Dorsalis Pedis (R) Skin: Warm Neurological: Cranial Nerves Intact Neuro Extensive - Mental Status: Alert, Oriented x3, Other Neuro Extensive - Motor, Sensory, Reflexes: Other (able to lift legs against gravity however the left leg cannot stand resistance) Psychiatric: Alert, Normal Mood - Patient Data Result Diagrams: 04/30/17 06:30 04/30/17 06:30 *Q Meaningful Use (ADM) - VTE *Q VTE Criteria *Q: - Stroke *Q Stroke Criteria *Q: - AMI *Q AMI Criteria *Q: Problem List Initiated/Reviewed/Updated: Yes Orders Last 24hrs: Active Orders 24 hr Category Date Time Status Lisinopril [Prinivil] Med 04/29/17 09:00 Ordered 10 mg PO DAILY Magnesium Oxide Med 04/28/17 16:15 Ordered 400 mg PO BIDM Nicotine [Habitrol] Med 04/29/17 09:00 Ordered 14 mg TRDERM DAILY Phosphorus #1 [Neutra-Phos] Med 04/28/17 21:00 Ordered 500 mg PO TID Potassium Chloride [Klor-Con 10] Med 04/29/17 09:00 Ordered 20 meq PO DAILY predniSONE Med 04/29/17 09:00 Ordered 5 mg PO DAILY Medication Orders Lisinopril (Prinivil) 10 mg PO DAILY PEARL Magnesium Oxide (Magnesium Oxide) 400 mg PO BIDM PEARL Nicotine (Habitrol) 14 mg TRDERM DAILY PEARL Potassium Chloride (Klor-Con 10) 20 meq PO DAILY PEARL Prednisone (Prednisone) 5 mg PO DAILY PEARL Sodium Chloride (Saline Flush) 10 ml FLUSH ASDIRECTED PRN PRN Reason: Keep Vein Open Last Admin: 04/28/17 14:47 Dose: 10 ml Sodium Phosphate (Neutra-Phos) 500 mg PO TID PEARL Assessment/Plan Comment:: 1. Generalized weakness, multifactorial - likely secondary to the profound hypokalemia - this will be replaced 2. Hypokalemia - potassium 10 meq IV started from the ER - give another replacement PO Kdur 40meq PO - replacement magnesium 3. Hypomagnesemia - Magnesium 1g IV - recheck magnesium 4. UTI - send for urine culture - was givein IV rocephin, continue 5. Elevated liver enzymes - history of alcoholism, She denies recent alcohol drink - Banana bag started from the ER - IV hydration 6. 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
[2017-04-28] MEDS ORDERED: Potassium Chloride 10 MEQ Tab.ER PO ONE (16:18)
[2017-04-28] MEDS ORDERED: Ondansetron 4 MG Tab.DIS PO PRN (16:19)
[2017-04-28] MEDS ORDERED: cefTRIAXone 1 GM in Sodium Chloride 0.9% 50 ML IV SCH (17:00)
[2017-04-28] MEDS ORDERED: LORazepam 2 MG/ML Syringe IVPUSH PRN (19:02)
[2017-04-28] MEDS: Nicotine 14 MG/24 Hr Patch TRDERM SCH (19:57)
[2017-04-28] MEDS: Phosphorus #1 250 MG Tab PO SCH (20:52)
[2017-04-29 07:04] LABS: CHLORIDE,CL 97 mmol/L (101-111); SODIUM,NA 133 mmol/L (135-145)
[2017-04-29] MEDS ORDERED: Nicotine 14 MG/24 Hr Patch TRDERM SCH (09:00)
[2017-04-29] MEDS: Nicotine 14 MG/24 Hr Patch TRDERM SCH (09:13)
[2017-04-29] MEDS: Lisinopril 10 MG Tab PO SCH (09:17)
[2017-04-29] MEDS: Phosphorus #1 250 MG Tab PO SCH ×3 (09:17→20:43)
[2017-04-29] MEDS: predniSONE 5 MG Tab PO SCH (09:18)
[2017-04-29] MEDS: Potassium Chloride 10 MEQ Tab.ER PO SCH (09:19)
[2017-04-29] MEDS: Enoxaparin 40 MG/0.4 ML Syringe SUBCUT SCH (09:19)
[2017-04-29] MEDS ORDERED: Potassium Chloride 10 MEQ Tab.ER PO ONE (11:24)
--- NOTE | 2017-04-29 11:58 | PCM.PN ---
- General Info Date of Service: 04/29/17 Admission Dx/Problem (Free Text): presented with weakness, falling Functional Status: Reports: pain controlled - Review of Systems General: Reports: Weakness. Denies: Fever Pulmonary: Reports: cough (nonproductive, chronic). Denies: shortness of breath Cardiovascular: Denies: Chest Pain Gastrointestinal: Denies: Abdominal pain Genitourinary: Denies: dysuria Neurological: Denies: Confusion - Patient Data Vitals - most recent: Last Vital Signs Temp 36.2 C 04/29/17 07:21 Pulse 88 04/29/17 07:21 Resp 18 04/29/17 07:21 BP 132/92 H 04/29/17 09:17 Pulse Ox 100 04/29/17 07:21 Weight - most recent: 54.885 kg I&O - last 24 hours: Intake & Output 04/28/17 04/29/17 04/29/17 22:59 06:59 14:59 Intake Total 1786 125 990 Output Total 400 450 750 Balance 1386 -325 240 Lab Results last 24 hrs: Laboratory Results - last 24 hr 04/29/17 04/29/17 Range/Units 06:18 06:18 WBC 4.9 L (5.0-10.0) 10^3/uL RBC 2.76 L (4.2-5.4) 10^6/uL Hgb 10.4 L (12.0-16.0) g/dL Hct 30.4 L (37.0-47.0) % MCV 110.1 H (80-100) fL MCH 37.7 H (27.0-34.0) pg MCHC 34.2 (33.0-35.0) g/dL Plt Count 123 L (150-450) 10^3/uL Sodium 133 L (135-145) mmol/L Potassium 3.1 L (3.6-5.0) mmol/L Chloride 97 L (101-111) mmol/L Carbon Dioxide 24.0 (21.0-31.0) mmol/L Anion Gap 15.1 BUN 6 L (7-18) mg/dL Creatinine 0.5 L (0.6-1.3) mg/dL Est Cr Clr Drug Dosing 109.78 mL/min Estimated GFR (MDRD) > 60 BUN/Creatinine Ratio 12.00 Glucose 86 (74-105) mg/dL Calcium 8.1 L (8.4-10.2) mg/dl Magnesium 1.7 L (1.8-2.5) mg/dL Total Bilirubin 2.1 H (0.2-1.0) mg/dL AST 212 H (10-42) IU/L ALT 80 H (10-60) IU/L Alkaline Phosphatase 237 H (42-121) IU/L Total Protein 5.7 L (6.7-8.2) g/dl Albumin 2.6 L (3.2-5.5) g/dl Globulin 3.1 Albumin/Globulin Ratio 0.84 Med Orders - Current: Current Medications Enoxaparin Sodium (Lovenox) 40 mg SUBCUT DAILY [facility] Last Admin: 04/29/17 09:19 Dose: 40 mg Ceftriaxone Sodium 1 gm/ (Sodium Chloride) 50 mls @ 100 mls/hr IV ONETIME [facility] Last Admin: 04/28/17 17:30 Dose: 100 mls/hr Lisinopril (Prinivil) 10 mg PO DAILY [facility] Last Admin: 04/29/17 09:17 Dose: 10 mg Lorazepam (Ativan) 0 mg IVPUSH ASDIRECTED PRN; Protocol PRN Reason: agitation Magnesium Oxide (Magnesium Oxide) 500 mg PO BIDM [facility] Last Admin: 04/29/17 09:18 Dose: 500 mg Nicotine (Habitrol) 14 mg TRDERM DAILY [facility] Last Admin: 04/29/17 09:13 Dose: 14 mg Ondansetron HCl (Zofran Odt) 4 mg PO Q6H PRN PRN Reason: nausea, able to take PO Potassium Chloride (Klor-Con 10) 20 meq PO DAILY@0800 [facility] Last Admin: 04/29/17 09:19 Dose: 20 meq Potassium Chloride (Klor-Con 10) 40 meq PO ONETIME ONE Stop: 04/29/17 11:25 Prednisone (Prednisone) 5 mg PO DAILY [facility] Last Admin: 04/29/17 09:18 Dose: 5 mg Sodium Chloride (Saline Flush) 10 ml FLUSH ASDIRECTED PRN PRN Reason: Keep Vein Open Last Admin: 04/28/17 17:31 Dose: 10 ml Sodium Phosphate (Neutra-Phos) 500 mg PO TID [facility] Last Admin: 04/29/17 09:17 Dose: 500 mg Discontinued Medications Fluconazole (Diflucan) 200 mg PO ONETIME ONE Stop: 04/28/17 14:42 Last Admin: 04/28/17 14:59 Dose: 200 mg Potassium Chloride 10 meq/ (Premix) 100 mls @ 100 mls/hr IV ONETIME ONE Stop: 04/28/17 15:39 Last Admin: 04/28/17 15:01 Dose: 100 mls/hr Ceftriaxone Sodium 1 gm/ (Sodium Chloride) 50 mls @ 100 mls/hr IV ONETIME ONE Stop: 04/28/17 15:11 Last Admin: 04/28/17 17:39 Dose: Not Given Multivitamins/Minerals 10 ml/Thiamine HCl 100 mg/ Folic Acid 1 mg/ Lactated Ringer's 1,011.2 mls @ 999 mls/hr IV .BOLUS ONE Stop: 04/28/17 15:46 Last Admin: 04/28/17 15:01 Dose: 999 mls/hr Magnesium Sulfate/Dextrose 1 (gm/ Premix) 100 mls @ 100 mls/hr IV ONETIME ONE Stop: 04/28/17 17:17 Last Admin: 04/28/17 18:02 Dose: 100 mls/hr Magnesium Oxide (Magnesium Oxide) 400 mg PO BIDM [facility] Last Admin: 04/28/17 17:21 Dose: Not Given Nicotine (Habitrol) 14 mg TRDERM DAILY [facility] Potassium Chloride (Klor-Con 10) 40 meq PO ONETIME ONE Stop: 04/28/17 16:19 Last Admin: 04/28/17 17:22 Dose: 40 meq - Exam General: alert, oriented HEENT: Other (left periorbital bruise) Neck: supple Lungs: Wheezing (her wheezing cleared after coughing) Cardiovascular: Regular Rate, Regular Rhythm Abdomen: bowel sounds present, soft, no tenderness Extremities: no edema Skin: warm, dry, ecchymosis (left eye) Neurological: other (no tremor) Psy/Mental Status: alert, normal affect, normal mood - Problem List & Annotations (1) Generalized weakness SNOMED Code(s): 40278579 Code(s): R53.1 - WEAKNESS Status: Acute Current Visit: Yes (2) Hypokalemia SNOMED Code(s): 85407451 Code(s): E87.6 - HYPOKALEMIA Status: Acute Current Visit: Yes (3) Hyponatremia SNOMED Code(s): 90125449 Code(s): E87.1 - HYPO-OSMOLALITY AND HYPONATREMIA Status: Acute Current Visit: Yes (4) UTI (urinary tract infection) SNOMED Code(s): 10971420 Code(s): N39.0 - URINARY TRACT INFECTION, SITE NOT SPECIFIED Status: Acute Current Visit: Yes Qualifiers: Urinary tract infection type: site unspecified Hematuria presence: without hematuria Qualified Code(s): N39.0 - Urinary tract infection, site not specified - Problem List Review Problem List Initiated/Reviewed/Updated: Yes - My Orders Last 24 Hours: My Active Orders 04/29/17 11:24 Potassium Chloride [Klor-Con 10] 40 meq PO ONETIME ONE 04/29/17 11:48 [employer] Discontinue [Cardiac Monitoring Discontinue] [RC] Click To Edit 04/29/17 Breakfast Regular Diet [DIET] 04/30/17 05:11 MAGNESIUM [CHEM] AM PHOSPHORUS [CHEM] AM 04/30/17 05:15 BASIC METABOLIC PANEL,BMP [CHEM] AM CBC WITH AUTO DIFF [HEME] AM - Plan Plan:: 1. Generalized weakness, multifactorial - likely secondary to the profound hypokalemia, electrolyte abnormalities - history of alcohol use - UTI 2. Hypokalemia, hypomagnesemia, hyponatremia - continue replacement and recheck in the morning 3. UTI - Urine culture: pending - treat with IV rocephin 4. Elevated liver enzymes due to alcoholic hepatitis - history of alcoholism, She denies recent alcohol drink - supplement thiamine, folate, mvi 5. history of alcoholism - Alcohol withdrawal protocol to be restarted 6: hypertension - treat with lisinopril; continue bP check 8: bicytopenia - Likely from underlying liver problem, from chronic alcoholism - Monitor CBC periodically 9: history GI bleed - profilaxis with protonix DVT prophylaxis: - Lovenox CODE STATUS: DNR/DNI
[2017-04-29] MEDS: Folic Acid 1 MG Tab PO SCH (12:15)
[2017-04-29] MEDS ORDERED: Thiamine 100 MG Tab PO SCH (21:00)
[2017-04-29] MEDS ORDERED: Multivitamins,Therapeutic Tab PO SCH (21:00)
[2017-04-30 07:04] LABS: CHLORIDE,CL 99 mmol/L (101-111); SODIUM,NA 133 mmol/L (135-145)
[2017-04-30 07:45] VITALS: BP 128/93
[2017-04-30] MEDS: Enoxaparin 40 MG/0.4 ML Syringe SUBCUT SCH (08:22)
[2017-04-30] MEDS: Nicotine 14 MG/24 Hr Patch TRDERM SCH (08:23)
[2017-04-30] MEDS: Phosphorus #1 250 MG Tab PO SCH (08:23)
[2017-04-30] MEDS: predniSONE 5 MG Tab PO SCH (08:24)
[2017-04-30] MEDS: Potassium Chloride 10 MEQ Tab.ER PO SCH (08:24)
[2017-04-30] MEDS: Folic Acid 1 MG Tab PO SCH (08:24)
[2017-04-30] MEDS: Lisinopril 10 MG Tab PO SCH (08:24)
--- NOTE | 2017-04-30 10:23 | PCM.DCSUM1 ---
Discharge Summary - Hospital Course Free Text/Narrative:: h/o alcohol use, presented with unsteadyness, weakness 1. Generalized weakness, multifactorial - likely secondary to the profound hypokalemia, electrolyte abnormalities - history of alcohol use - UTI - improved with physical therapy 2. Hypokalemia, hypomagnesemia, hyponatremia - continue replacement and recheck periodically 3. UTI - Urine culture: pending - treated with IV rocephin - will discharge with Ciprofloxacin 4. Elevated liver enzymes due to alcoholic hepatitis - history of alcoholism, She denies recent alcohol drink - supplement thiamine, folate, mvi 5. history of alcoholism - discussed cessation 6: hypertension - treat with lisinopril 8: bicytopenia - Likely from underlying liver problem, from chronic alcoholism - Monitor CBC periodically 9: history GI bleed - profilaxis with protonix - Discharge Data Discharge Date: 04/30/17 Discharge Disposition: Home, Self-Care 01 Condition: Good - Discharge Diagnosis/Problem(s) (1) Generalized weakness SNOMED Code(s): 58526174 ICD Code: R53.1 - WEAKNESS Status: Acute Current Visit: Yes (2) Hypokalemia SNOMED Code(s): 70339858 ICD Code: E87.6 - HYPOKALEMIA Status: Acute Current Visit: Yes (3) Hyponatremia SNOMED Code(s): 41683287 ICD Code: E87.1 - HYPO-OSMOLALITY AND HYPONATREMIA Status: Acute Current Visit: Yes (4) UTI (urinary tract infection) SNOMED Code(s): 51066609 ICD Code: N39.0 - URINARY TRACT INFECTION, SITE NOT SPECIFIED Status: Acute Current Visit: Yes Qualifiers: Urinary tract infection type: site unspecified Hematuria presence: without hematuria Qualified Code(s): N39.0 - Urinary tract infection, site not specified - Patient Instructions Diet: Regular Diet as Tolerated Activity: As Tolerated - Discharge Plan Prescriptions/Med Rec: Ciprofloxacin HCl 250 mg PO BID #10 tablet Folic Acid 1 mg PO DAILY #14 tablet Multivitamins,Therapeutic [Thera] 1 each PO BEDTIME #30 tablet Thiamine [Vitamin B-1] 100 mg PO BEDTIME #14 tablet Home Medications: Home Meds Humira 40 mg IM ASDIRECTED 07/02/15 [History] predniSONE [Prednisone] 5 mg PO DAILY 07/02/15 [History] LORazepam [Ativan] 0.5 mg PO Q8H PRN #20 tablet 04/10/17 [Rx] Lisinopril [Prinivil] 10 mg PO DAILY #30 tablet 04/10/17 [Rx] Magnesium Oxide 400 mg PO BIDM #20 tablet 04/10/17 [Rx] Nicotine [Habitrol] 14 mg TRDERM DAILY #7 patch 04/10/17 [Rx] Phosphorus #1 [Neutra-Phos] 500 mg PO TID #30 tablet 04/10/17 [Rx] Ciprofloxacin HCl 250 mg PO BID #10 tablet 04/30/17 [Rx] Folic Acid 1 mg PO DAILY #14 tablet 04/30/17 [Rx] Multivitamins,Therapeutic [Thera] 1 each PO BEDTIME #30 tablet 04/30/17 [Rx] Thiamine [Vitamin B-1] 100 mg PO BEDTIME #14 tablet 04/30/17 [Rx] Forms: ED Department Discharge Referrals: Akshat Echeverria MD [Primary Care Provider] - (in 3-4 days) - Discharge Summary/Plan Comment DC Time >30 min.: No - General Info Date of Service: 04/30/17 Admission Dx/Problem (Free Text: presented with weakness, falling Functional Status: Reports: pain controlled - Review of Systems General: Denies: Fever, Weakness HEENT: Denies: visual changes Cardiovascular: Denies: Chest Pain Gastrointestinal: Reports: Diarrhea. Denies: Abdominal pain - Patient Data Vitals - Most Recent: Last Vital Signs Temp 36.8 C 04/30/17 07:00 Pulse 80 04/30/17 07:00 Resp 20 04/30/17 07:00 BP 128/93 H 04/30/17 08:24 Pulse Ox 100 04/30/17 07:00 Weight - Most Recent: 54.885 kg I&O - Last 24 hours: Intake & Output 04/29/17 04/30/17 04/30/17 22:59 06:59 14:59 Intake Total 600 300 Output Total 1100 400 Balance -500 -100 Lab Results - Last 24 hrs: Laboratory Results - last 24 hr 04/30/17 04/30/17 Range/Units 06:30 06:30 WBC 4.6 L (5.0-10.0) 10^3/uL RBC 2.73 L (4.2-5.4) 10^6/uL Hgb 10.2 L (12.0-16.0) g/dL Hct 30.5 L (37.0-47.0) % MCV 111.7 H (80-100) fL MCH 37.4 H (27.0-34.0) pg MCHC 33.4 (33.0-35.0) g/dL Plt Count 150 (150-450) 10^3/uL Neut % (Auto) 54.8 (42.2-75.2) % Lymph % (Auto) 25.8 (20.5-50.1) % [place] % (Auto) 13.5 H (2-8) % Eos % (Auto) 5.0 H (1.0-3.0) % Baso % (Auto) 0.9 (0.0-1.0) % Sodium 133 L (135-145) mmol/L Potassium 3.5 L (3.6-5.0) mmol/L Chloride 99 L (101-111) mmol/L Carbon Dioxide 25.0 (21.0-31.0) mmol/L Anion Gap 12.5 BUN 6 L (7-18) mg/dL Creatinine 0.5 L (0.6-1.3) mg/dL Est Cr Clr Drug Dosing 109.78 mL/min Estimated GFR (MDRD) > 60 Glucose 86 (74-105) mg/dL Calcium 8.3 L (8.4-10.2) mg/dl Phosphorus 3.9 (2.5-4.6) mg/dL Magnesium 1.7 L (1.8-2.5) mg/dL Med Orders - Current: Current Medications Enoxaparin Sodium (Lovenox) 40 mg SUBCUT DAILY [facility] Last Admin: 04/30/17 08:22 Dose: 40 mg Folic Acid (Folic Acid) 1 mg PO DAILY [facility] Last Admin: 04/30/17 08:24 Dose: 1 mg Ceftriaxone Sodium 1 gm/ (Sodium Chloride) 50 mls @ 100 mls/hr IV ONETIME [facility] Last Admin: 04/28/17 17:30 Dose: 100 mls/hr Lisinopril (Prinivil) 10 mg PO DAILY [facility] Last Admin: 04/30/17 08:24 Dose: 10 mg Lorazepam (Ativan) 0 mg IVPUSH ASDIRECTED PRN; Protocol PRN Reason: agitation Magnesium Oxide (Magnesium Oxide) 500 mg PO BIDM [facility] Last Admin: 04/30/17 08:23 Dose: 500 mg Multivitamins (Thera) 1 each PO BEDTIME [facility] Last Admin: 04/29/17 20:43 Dose: 1 each Nicotine (Habitrol) 14 mg TRDERM DAILY [facility] Last Admin: 04/30/17 08:23 Dose: 14 mg Ondansetron HCl (Zofran Odt) 4 mg PO Q6H PRN PRN Reason: nausea, able to take PO Potassium Chloride (Klor-Con 10) 20 meq PO DAILY@0800 [facility] Last Admin: 04/30/17 08:24 Dose: 20 meq Prednisone (Prednisone) 5 mg PO DAILY [facility] Last Admin: 04/30/17 08:24 Dose: 5 mg Sodium Chloride (Saline Flush) 10 ml FLUSH ASDIRECTED PRN PRN Reason: Keep Vein Open Last Admin: 04/28/17 17:31 Dose: 10 ml Sodium Phosphate (Neutra-Phos) 500 mg PO TID [facility] Last Admin: 04/30/17 08:23 Dose: 500 mg Thiamine HCl (Vitamin B-1) 100 mg PO BEDTIME [facility] Last Admin: 04/29/17 20:43 Dose: 100 mg Discontinued Medications Fluconazole (Diflucan) 200 mg PO ONETIME ONE Stop: 04/28/17 14:42 Last Admin: 04/28/17 14:59 Dose: 200 mg Potassium Chloride 10 meq/ (Premix) 100 mls @ 100 mls/hr IV ONETIME ONE Stop: 04/28/17 15:39 Last Admin: 04/28/17 15:01 Dose: 100 mls/hr Ceftriaxone Sodium 1 gm/ (Sodium Chloride) 50 mls @ 100 mls/hr IV ONETIME ONE Stop: 04/28/17 15:11 Last Admin: 04/28/17 17:39 Dose: Not Given Multivitamins/Minerals 10 ml/Thiamine HCl 100 mg/ Folic Acid 1 mg/ Lactated Ringer's 1,011.2 mls @ 999 mls/hr IV .BOLUS ONE Stop: 04/28/17 15:46 Last Admin: 04/28/17 15:01 Dose: 999 mls/hr Magnesium Sulfate/Dextrose 1 (gm/ Premix) 100 mls @ 100 mls/hr IV ONETIME ONE Stop: 04/28/17 17:17 Last Admin: 04/28/17 18:02 Dose: 100 mls/hr Magnesium Oxide (Magnesium Oxide) 400 mg PO BIDM [facility] Last Admin: 04/28/17 17:21 Dose: Not Given Nicotine (Habitrol) 14 mg TRDERM DAILY [facility] Potassium Chloride (Klor-Con 10) 40 meq PO ONETIME ONE Stop: 04/28/17 16:19 Last Admin: 04/28/17 17:22 Dose: 40 meq Potassium Chloride (Klor-Con 10) 40 meq PO ONETIME ONE Stop: 04/29/17 11:25 Last Admin: 04/29/17 12:16 Dose: 40 meq - Exam General: Reports: alert, oriented Neck: Reports: supple Lungs: Reports: Clear to auscultation, Normal respiratory effort Cardiovascular: Reports: Regular Rate Abdomen: Reports: bowel sounds present, soft, no tenderness Skin: Reports: warm, dry Psy/Mental Status: Reports: alert, normal affect, normal mood *Q Meaningful Use (DIS) - VTE *Q VTE Criteria *Q: - Stroke *Q Stroke Criteria *Q: - AMI *Q AMI Criteria *Q:
[2017-04-30] MEDS ORDERED: Loperamide 2 MG Cap PO PRN (10:51)
== END 2017-04-30 11:45 | disposition home or self-care (01) | DRG 948 ==
LOC: DL.ED 12:27 → UNDOADMIN 14:55 → DL.MS 14:55
PROVIDERS: ADMIT Internal Medicine; ATTEND Internal Medicine
DX: R53.1 Weakness (principal); N39.0 Urinary tract infection, site not specified; E87.1 Hypo-osmolality and hyponatremia; E87.6 Hypokalemia; E83.42 Hypomagnesemia; R74.8 Abnormal levels of other serum enzymes; K70.10 Alcoholic hepatitis without ascites; I10 Essential (primary) hypertension; F10.10 Alcohol abuse, uncomplicated; R19.7 Diarrhea, unspecified; K59.09 Other constipation; F41.8 Other specified anxiety disorders; M85.80 Other specified disorders of bone density and structure, unspecified site; G62.9 Polyneuropathy, unspecified; M54.5 Low back pain; R29.6 Repeated falls; F17.200 Nicotine dependence, unspecified, uncomplicated; Z66 Do not resuscitate
CPT/HCPCS: 36415; 80048; 80053; 81001; 82550; 82607; 82746; 83735; 84100; 85025; 85027; 87086; 87493; 94010; 96365; 97161-GP; 99285; A9270-GY; G0480; J0696; J1650; J3411; J3475; J3480; J3490; J7050; J7120

== ENCOUNTER 2017-06-02 14:33 | Inpatient (IN) | payer MEDICAID ==
[2017-06-02] MEDS ORDERED: Acetaminophen 325 MG Tab PO PRN (15:23)
[2017-06-02] MEDS ORDERED: Ondansetron 4 MG/2 ML SDV IVPUSH PRN (15:23)
[2017-06-02] MEDS: Sodium Chloride 0.9% with KCl 1,000 ML IV SCH (16:08)
[2017-06-02] MEDS: Vancomycin 50 MG/ML Oral Solution Bottle Kit PO SCH ×3 (16:49→21:40)
[2017-06-02] MEDS: Potassium Chloride 10 MEQ Tab.ER PO SCH (17:49)
[2017-06-02] MEDS ORDERED: Nicotine 14 MG/24 Hr Patch TRDERM ONE (18:15)
--- NOTE | 2017-06-02 20:50 | HP ---
HISTORY OF PRESENT ILLNESS: Mrs. Alejandra Dougherty is a 56-year-old female with medical history significant for rheumatoid arthritis, hypertension, hyperlipidemia, history of depression, has been doctoring with the primary care physician with Clostridium difficile diarrhea. The patient was initially started on vancomycin 125 mg twice a day and then later changed to 4 times a day, but still continued to have diarrhea and noted to have abnormal labs today with potassium of 2.9, needing admission to the hospital. At this time, the patient complains of increasing diarrhea for the last 2 weeks, which has been progressively getting worse. She had at least 20 episodes of loose stools each day. She has been taking the oral vancomycin, but without any benefit. She denies any chest pain. No shortness of breath. No abdominal pain. No hematemesis, hematochezia, or melenic stools, but complains of having mild nausea feeling. She denies any fevers or chills in the last few days. Complains of mild dizziness when she is walking around, 3-4/10 in intensity, aggravated on ambulation, relieved with rest. The patient denied any history of chest pains on exertion, but has dyspnea on exertion. No history of orthopnea or paroxysmal nocturnal dyspnea. The patient denied any history of hematemesis, hematochezia, or melenic stools in the past. The patient has chronic history of tobacco use. REVIEW OF SYSTEMS: A complete review of system including skin, ear, nose, and throat, cardiovascular system, respiratory system, gastrointestinal system, genitourinary system, hematology, oncology, neurology, allergy, immunology, constitutional were all evaluated and were negative except above the said notes. PAST MEDICAL HISTORY: Significant for hypertension; hyperlipidemia; history of depression; degenerative disk disease, involving the cervical spine; rheumatoid arthritis, on chronic immunosuppressive therapy; chronic tobacco use. PAST SURGICAL HISTORY: Significant for total abdominal hysterectomy with bilateral salpingo-oophorectomy. FAMILY HISTORY: Significant for heart disease in her father, breast cancer in her sister, heart disease in her brother, and stroke and diabetes in her maternal grandfather. SOCIAL HISTORY: The patient has chronic history of smoking tobacco. She smokes around 2 packs of cigarettes a day. No history of alcohol intake. ALLERGIES: No known drug allergies. She has allergies to environmental agents. PHYSICAL EXAMINATION: General: The patient is well-oriented to time, place, and person. Follows commands spontaneously. Cardiovascular System: S1 and S2 heard with normal intensity. No gallops. Respiratory System: Clear to auscultation bilaterally. No wheeze. No crepitations. Abdomen: Soft. Bowel sounds positive. Nontender. No rigidity. Extremities: No edema in bilateral lower extremities. Neurology: No gross focal neurological deficits. LABORATORY DATA: As reviewed from the clinic, sodium 138, potassium 2.4, chloride 95, bicarb 32.4, glucose 169, calcium 8.2, and magnesium 1.2. C. difficile toxin is positive, done on May 31, 2017. ASSESSMENT: 1. Clostridium difficile diarrhea. 2. Severe dehydration. 3. Acute hypokalemia. 4. Acute hypomagnesemia. 5. Rheumatoid arthritis. 6. Possible acute renal failure. 7. On chronic immunosuppressive therapy. PLAN: 1. Clostridium Difficile Diarrhea: The patient continues to have loose stools. Her stool for C. diff toxin has been positive. She has been having this loose stools for the last 2 weeks. Initially she was getting 125 mg of vancomycin twice a day, but later on increased to 4 times a day. We will continue with her vancomycin 250 mg oral 4 times a day at this time and closely follow. If the patient's diarrhea does not seem to be improved, then one might consider adding a Dificid at that time. Given her chronic steroid therapy, unsure if this is resulting in a delayed response to the treatment. Closely follow. The patient does not have any systemic symptoms yet. 2. Hypertension: The patient's blood pressure will be closely monitored. Secondary to the diarrhea and volume loss, we will hold the lisinopril for now. Resume lisinopril when she is more stable. 3. Acute Hypokalemia: We will replace with IV and oral potassium chloride. Recheck a potassium later this evening and also in a.m. and replace as needed. 4. Hypomagnesemia: The patient is currently on magnesium oral tablets. Continue the same. We will check a magnesium and phosphorus level in a.m. 5. Rheumatoid Arthritis: Remains stable. No acute flare up noted. The patient has been on chronic steroid therapy. Continue the same. She has not been on Humira secondary to the ongoing infections. 6. DVT Prophylaxis: We will have her on heparin 5000 subcutaneous q.8 hourly for DVT prophylaxis. CODE STATUS: The patient wants to be DNR/DNI. Discussed with Dr. Akshat Echeverria regarding the plan of care. Discussed with the patient and family members regarding the plan of care. Reviewed the labs and medications. Reviewed the old charts. MODL /[id number]
[2017-06-02] MEDS ORDERED: Phosphorus #1 250 MG Tab PO SCH (21:00)
[2017-06-02] MEDS: Heparin Sodium 5,000 Units/ML Vial SUBCUT SCH (21:40)
[2017-06-02] MEDS: Multivitamins,Therapeutic Tab PO SCH (21:41)
[2017-06-02] MEDS: Thiamine 100 MG Tab PO SCH (21:41)
[2017-06-02] MEDS: LORazepam 0.5 MG Tab PO PRN (21:42)
[2017-06-03] MEDS: Sodium Chloride 0.9% with KCl 1,000 ML IV SCH ×2 (02:25→14:10)
[2017-06-03] MEDS: Heparin Sodium 5,000 Units/ML Vial SUBCUT SCH ×3 (06:19→21:29)
[2017-06-03 06:59] LABS: CHLORIDE,CL 100 mmol/L (101-111); SODIUM,NA 142 mmol/L (135-145)
[2017-06-03] MEDS ORDERED: Magnesium Sulfate/Water 4 GM in Premix Bag 1 BAG IV ONE (07:42)
[2017-06-03] MEDS: Vancomycin 50 MG/ML Oral Solution Bottle Kit PO SCH ×4 (08:35→21:28)
[2017-06-03] MEDS: Nicotine 14 MG/24 Hr Patch TRDERM SCH (08:37)
[2017-06-03] MEDS: Folic Acid 1 MG Tab PO SCH (08:38)
[2017-06-03] MEDS: Potassium Chloride 10 MEQ Tab.ER PO SCH ×3 (08:38→17:53)
[2017-06-03] MEDS: predniSONE 5 MG Tab PO SCH (08:38)
[2017-06-03] MEDS: Phosphorus #1 250 MG Tab PO SCH ×3 (08:38→21:28)
[2017-06-03] MEDS ORDERED: Remove Patch*NICOTINE PATCH TRDERM SCH (09:00)
[2017-06-03] MEDS: Lisinopril 10 MG Tab PO SCH (09:03)
--- NOTE | 2017-06-03 10:06 | PCM.PN ---
- General Info Date of Service: 06/03/17 Admission Dx/Problem (Free Text): Patient was admitted with the diarrhea and positive C. difficile. She was having 20 episodes of diarrhea per day but since admission yesterday she had only 7 episodes. Last one started to be loose instead of watery. Her appetite still down. Her oral intake is low. She had only a few bites from her practice today. She denies nausea, vomiting, abdominal pain, fever, chills, chest pain, shortness breath, urinary symptoms, blood in the stool, any other symptoms or concerns. - Review of Systems General: Reports: No Symptoms HEENT: Reports: no symptoms Pulmonary: Reports: no symptoms Cardiovascular: Reports: No Symptoms Gastrointestinal: Reports: No symptoms - Patient Data Vitals - most recent: Last Vital Signs Temp 37.6 C 06/03/17 07:24 Pulse 89 06/03/17 07:24 Resp 20 06/03/17 07:24 BP 110/81 06/03/17 09:03 Pulse Ox 94 L 06/03/17 07:24 Weight - most recent: 53.796 kg I&O - last 24 hours: Intake & Output 06/02/17 06/03/17 06/03/17 22:59 06:59 14:59 Intake Total 842 864 Balance 842 864 Lab Results last 24 hrs: Laboratory Results - last 24 hr 06/02/17 06/03/17 06/03/17 Range/Units 22:18 06:30 06:30 WBC 4.5 L (5.0-10.0) 10^3/uL RBC 3.16 L (4.2-5.4) 10^6/uL Hgb 12.0 (12.0-16.0) g/dL Hct 35.3 L (37.0-47.0) % MCV 111.7 H (80-100) fL MCH 38.0 H (27.0-34.0) pg MCHC 34.0 (33.0-35.0) g/dL Plt Count 196 (150-450) 10^3/uL Sodium 142 (135-145) mmol/L Potassium 2.7 L 3.4 L (3.6-5.0) mmol/L Chloride 100 L (101-111) mmol/L Carbon Dioxide 30.0 (21.0-31.0) mmol/L Anion Gap 15.4 BUN 10 (7-18) mg/dL Creatinine 0.8 (0.6-1.3) mg/dL Est Cr Clr Drug Dosing 67.48 mL/min Estimated GFR (MDRD) > 60 Glucose 84 (74-105) mg/dL Calcium 7.7 L (8.4-10.2) mg/dl Phosphorus 3.9 (2.5-4.6) mg/dL Magnesium 1.3 L (1.8-2.5) mg/dL Med Orders - Current: Current Medications Acetaminophen (Tylenol) 650 mg PO Q4H PRN PRN Reason: Pain (Mild 1-3)/fever Folic Acid (Folic Acid) 1 mg PO DAILY [facility] Last Admin: 06/03/17 08:38 Dose: 1 mg Heparin Sodium (Porcine) (Heparin Sodium) 5,000 units SUBCUT Q8HR [facility] Last Admin: 06/03/17 06:19 Dose: 5,000 units Potassium Chloride/Sodium Chloride (Normal Saline With 40 Meq Kcl) 1,000 mls @ 100 mls/hr IV ASDIRECTED [facility] Last Admin: 06/03/17 02:25 Dose: 100 mls/hr Lisinopril (Prinivil) 10 mg PO DAILY [facility] Last Admin: 06/03/17 09:03 Dose: 10 mg Lorazepam (Ativan) 0.5 mg PO Q8H PRN PRN Reason: Anxiety Last Admin: 06/02/17 21:42 Dose: 0.5 mg Magnesium Oxide (Magnesium Oxide) 500 mg PO TID@0800,1200,1800 [facility] Multivitamins (Thera) 1 each PO BEDTIME [facility] Last Admin: 06/02/17 21:41 Dose: 1 each Nicotine (Habitrol) 14 mg TRDERM DAILY [facility] Last Admin: 06/03/17 08:37 Dose: 14 mg Ondansetron HCl (Zofran) 4 mg IVPUSH Q4H PRN PRN Reason: Nausea/Vomiting Potassium Chloride (Klor-Con 10) 40 meq PO TIDMEALS [facility] Last Admin: 06/03/17 08:38 Dose: 40 meq Prednisone (Prednisone) 5 mg PO DAILY@0800 [facility] Last Admin: 06/03/17 08:38 Dose: 5 mg Sodium Phosphate (Neutra-Phos) 250 mg PO TID [facility] Last Admin: 06/03/17 08:38 Dose: 250 mg Thiamine HCl (Vitamin B-1) 100 mg PO BEDTIME [facility] Last Admin: 06/02/17 21:41 Dose: 100 mg Vancomycin HCl (Vancomycin 50 Mg/Ml Soln) 250 mg PO QID [facility] Last Admin: 06/03/17 08:35 Dose: 250 mg Discontinued Medications Magnesium Sulfate 4 gm/ Premix 100 mls @ 100 mls/hr IV ONETIME ONE Stop: 06/03/17 08:41 Last Admin: 06/03/17 08:40 Dose: 100 mls/hr Magnesium Oxide (Magnesium Oxide) 400 mg PO BIDM [facility] Last Admin: 06/02/17 19:14 Dose: Not Given Magnesium Oxide (Magnesium Oxide) 500 mg PO BIDM [facility] Miscellaneous Information (Remove Patch) 1 ea TRDERM Q24H [facility] Nicotine (Habitrol) 14 mg TRDERM ONETIME ONE Stop: 06/02/17 18:16 Last Admin: 06/02/17 19:14 Dose: 14 mg Sodium Phosphate (Neutra-Phos) 500 mg PO TID [facility] Last Admin: 06/02/17 21:41 Dose: 500 mg - Exam General: alert, oriented, cooperative, no acute distress HEENT: Pupils equal, Pupils reactive, EOMI, Mucous membr. moist/pink Neck: supple, trachea midline, no JVD Lungs: Clear to auscultation, Normal respiratory effort Cardiovascular: Regular Rate, Regular Rhythm Abdomen: bowel sounds present, soft, no tenderness, no distension (Female) Exam: Deferred Back Exam: Normal Inspection, Full Range of Motion Extremities: no edema, normal pulses, no tenderness/swelling, no clubbing, no cyanosis Skin: warm, dry, intact Neurological: no new focal deficit Psy/Mental Status: alert, normal affect, normal mood - Problem List & Annotations (1) C. difficile diarrhea SNOMED Code(s): 8254932072445 Code(s): A04.7 - ENTEROCOLITIS DUE TO CLOSTRIDIUM DIFFICILE Status: Acute Priority: High Current Visit: Yes (2) Dehydration SNOMED Code(s): 74967895 Code(s): E86.0 - DEHYDRATION Status: Acute Priority: High Current Visit : Yes (3) Hypomagnesemia SNOMED Code(s): 282365071 Code(s): E83.42 - HYPOMAGNESEMIA Status: Acute Priority: High Current Visit: Yes (4) History of rheumatoid arthritis SNOMED Code(s): 902376288 Code(s): Z87.39 - PERSONAL HISTORY OF DISEASES OF THE MS SYS AND CONN TISS Status: Chronic Current Visit: Yes (5) Hypokalemia SNOMED Code(s): 42042012 Code(s): E87.6 - HYPOKALEMIA Status: Acute Priority: High Current Visit : No - Problem List Review Problem List Initiated/Reviewed/Updated: Yes - My Orders Last 24 Hours: My Active Orders 06/03/17 07:45 Phosphorus #1 [Neutra-Phos] 250 mg PO TID 06/03/17 09:00 Lisinopril [Prinivil] 10 mg PO DAILY 06/04/17 05:11 C-REACTIVE PROTEIN [CHEM] AM CBC WITH AUTO DIFF [HEME] AM COMPREHENSIVE METABOLIC PN,CMP [CHEM] AM MAGNESIUM [CHEM] AM - Plan Plan:: C. difficile diarrhea Patient was diagnosed with the C. difficile 4 weeks ago and was started on oral vancomycin Symptoms was not getting better so her primary care provider left her on vancomycin 250 mg twice a day after 2 weeks of 250 milligram 4 times a day. C. difficile test came back positive again on 05/31/17 -Currently she is on vancomycin 250 milligrams 4 times a day orally -Her diarrhea is improving I discussed with patient the adding Flagyl versus continue on oral vancomycin. At this time she decided to continue on vancomycin since her diarrhea is improving. -If no further improvement in the next few days and will consider adding Flagyl or changing to Dificid Dehydration, from diarrhea Encourage oral fluid intake -Continue with IV fluid infusion Hypokalemia Potassium 2.4 and admission -Potassium is 3.4 today. -Continue oral replacement -Replace magnesium Hypomagnesemia -Magnesium is 1.3 -Give for gram of magnesium sulfate IV infusion Essential hypertension Resume lisinopril Rheumatoid arthritis Continue with her home regimen Heparin for DVT prophylaxis
[2017-06-03] MEDS: Thiamine 100 MG Tab PO SCH (21:27)
[2017-06-03] MEDS: Multivitamins,Therapeutic Tab PO SCH (21:27)
[2017-06-03] MEDS: LORazepam 0.5 MG Tab PO PRN (21:37)
[2017-06-04] MEDS: Sodium Chloride 0.9% with KCl 1,000 ML IV SCH (00:07)
[2017-06-04] MEDS: Heparin Sodium 5,000 Units/ML Vial SUBCUT SCH ×3 (05:49→21:58)
[2017-06-04 06:44] LABS: CHLORIDE,CL 104 mmol/L (101-111); SODIUM,NA 137 mmol/L (135-145)
[2017-06-04] MEDS ORDERED: Non-Formulary Medication 1 Each (Magnesium Oxide [Magnesium] 400 MG) PO SCH (09:00)
[2017-06-04] MEDS: Nicotine 14 MG/24 Hr Patch TRDERM SCH (09:33)
[2017-06-04] MEDS: Lisinopril 10 MG Tab PO SCH (09:33)
[2017-06-04] MEDS: Folic Acid 1 MG Tab PO SCH (09:34)
[2017-06-04] MEDS: predniSONE 5 MG Tab PO SCH (09:34)
[2017-06-04] MEDS: Phosphorus #1 250 MG Tab PO SCH ×3 (09:34→20:59)
[2017-06-04] MEDS: metroNIDAZOLE/Normal Saline 500 MG in Premix Bag 100 BAG IV SCH ×2 (09:40→17:48)
[2017-06-04] MEDS: Vancomycin 50 MG/ML Oral Solution Bottle Kit PO SCH ×4 (09:40→20:59)
--- NOTE | 2017-06-04 09:46 | PCM.PN ---
- General Info Date of Service: 06/04/17 Admission Dx/Problem (Free Text): Patient was admitted with the diarrhea and positive C. difficile. Her diarrhea was getting better yesterday. However since evening her diarrhea got worse and she had 20 episodes of watery diarrhea since last night according to her. This was not verified with nurses who reported only 6 episodes overnight with 1 episode of stool incontinence. She is drinking plenty of fluid but her appetite for food is low and not eating as usual. She had only a few bites from her breakfast today. She denies nausea, vomiting, abdominal pain, fever, chills, chest pain, shortness breath, urinary symptoms, blood in the stool, any other symptoms or concerns. - Patient Data Vitals - most recent: Last Vital Signs Temp 36.9 C 06/04/17 06:59 Pulse 77 06/04/17 06:59 Resp 20 06/04/17 06:59 BP 125/86 06/04/17 09:33 Pulse Ox 100 06/04/17 06:59 Weight - most recent: 53.796 kg I&O - last 24 hours: Intake & Output 06/03/17 06/04/17 06/04/17 22:59 06:59 14:59 Intake Total 1275 Balance 1275 Lab Results last 24 hrs: Laboratory Results - last 24 hr 06/04/17 06/04/17 06/04/17 Range/Units 05:30 05:30 05:30 WBC 5.0 (5.0-10.0) 10^3/uL RBC 2.93 L (4.2-5.4) 10^6/uL Hgb 11.1 L (12.0-16.0) g/dL Hct 33.6 L (37.0-47.0) % MCV 114.7 H (80-100) fL MCH 37.9 H (27.0-34.0) pg MCHC 33.0 (33.0-35.0) g/dL Plt Count 220 (150-450) 10^3/uL Neut % (Auto) 43.6 (42.2-75.2) % Lymph % (Auto) 33.1 (20.5-50.1) % [place] % (Auto) 19.9 H (2-8) % Eos % (Auto) 2.4 (1.0-3.0) % Baso % (Auto) 1.0 (0.0-1.0) % Sodium 137 (135-145) mmol/L Potassium 5.1 H (3.6-5.0) mmol/L Chloride 104 (101-111) mmol/L Carbon Dioxide 23.0 (21.0-31.0) mmol/L Anion Gap 15.1 BUN 7 (7-18) mg/dL Creatinine 0.7 (0.6-1.3) mg/dL Est Cr Clr Drug Dosing 77.12 mL/min Estimated GFR (MDRD) > 60 BUN/Creatinine Ratio 10.00 Glucose 82 (74-105) mg/dL Calcium 7.8 L (8.4-10.2) mg/dl Magnesium 1.9 (1.8-2.5) mg/dL Total Bilirubin 2.0 H (0.2-1.0) mg/dL AST 167 H (10-42) IU/L ALT 67 H (10-60) IU/L Alkaline Phosphatase 165 H (42-121) IU/L C-Reactive Protein 1.1 (0.0-1.3) mg/dL Total Protein 5.7 L (6.7-8.2) g/dl Albumin 2.5 L (3.2-5.5) g/dl Globulin 3.2 Albumin/Globulin Ratio 0.78 Med Orders - Current: Current Medications Acetaminophen (Tylenol) 650 mg PO Q4H PRN PRN Reason: Pain (Mild 1-3)/fever Folic Acid (Folic Acid) 1 mg PO DAILY [facility] Last Admin: 06/04/17 09:34 Dose: 1 mg Heparin Sodium (Porcine) (Heparin Sodium) 5,000 units SUBCUT Q8HR [facility] Last Admin: 06/04/17 05:49 Dose: 5,000 units Metronidazole 500 mg/ Premix 100 mls @ 100 mls/hr IV Q8H [facility] Last Admin: 06/04/17 09:40 Dose: 100 mls/hr Lisinopril (Prinivil) 10 mg PO DAILY [facility] Last Admin: 06/04/17 09:33 Dose: 10 mg Lorazepam (Ativan) 0.5 mg PO Q8H PRN PRN Reason: Anxiety Last Admin: 06/03/17 21:37 Dose: 0.5 mg Magnesium Oxide (Magnesium Oxide) 500 mg PO TID@0800,1200,1800 [facility] Last Admin: 06/04/17 09:33 Dose: 500 mg Multivitamins (Thera) 1 each PO BEDTIME [facility] Last Admin: 06/03/17 21:27 Dose: 1 each Nicotine (Habitrol) 14 mg TRDERM DAILY [facility] Last Admin: 06/04/17 09:33 Dose: 14 mg Ondansetron HCl (Zofran) 4 mg IVPUSH Q4H PRN PRN Reason: Nausea/Vomiting Prednisone (Prednisone) 5 mg PO DAILY@0800 [facility] Last Admin: 06/04/17 09:34 Dose: 5 mg Sodium Phosphate (Neutra-Phos) 250 mg PO TID [facility] Last Admin: 06/04/17 09:34 Dose: 250 mg Thiamine HCl (Vitamin B-1) 100 mg PO BEDTIME [facility] Last Admin: 06/03/17 21:27 Dose: 100 mg Vancomycin HCl (Vancomycin 50 Mg/Ml Soln) 250 mg PO QID [facility] Last Admin: 06/04/17 09:40 Dose: 250 mg Discontinued Medications Potassium Chloride/Sodium Chloride (Normal Saline With 40 Meq Kcl) 1,000 mls @ 100 mls/hr IV ASDIRECTED [facility] Last Admin: 06/04/17 00:07 Dose: 100 mls/hr Magnesium Sulfate 4 gm/ Premix 100 mls @ 100 mls/hr IV ONETIME ONE Stop: 06/03/17 08:41 Last Admin: 06/03/17 08:40 Dose: 100 mls/hr Magnesium Oxide (Magnesium Oxide) 400 mg PO BIDM [facility] Last Admin: 06/02/17 19:14 Dose: Not Given Magnesium Oxide (Magnesium Oxide) 500 mg PO BIDM [facility] Last Admin: 06/03/17 11:04 Dose: Not Given Magnesium Oxide (Magnesium Oxide) 500 mg PO TID@0800,1200,1800 [facility] Magnesium Oxide (Magnesium Oxide) 500 mg PO DAILY [facility] Stop: 06/03/17 11:00 Last Admin: 06/03/17 11:03 Dose: Not Given Miscellaneous Information (Remove Patch) 1 ea TRDERM Q24H [facility] Nicotine (Habitrol) 14 mg TRDERM ONETIME ONE Stop: 06/02/17 18:16 Last Admin: 06/02/17 19:14 Dose: 14 mg Potassium Chloride (Klor-Con 10) 40 meq PO TIDMEALS [facility] Last Admin: 06/03/17 17:53 Dose: 40 meq Sodium Phosphate (Neutra-Phos) 500 mg PO TID [facility] Last Admin: 06/02/17 21:41 Dose: 500 mg - Exam General: alert, oriented, cooperative, no acute distress. No: moderate distress , severe distress, sedated, lethargic, obtunded HEENT: Pupils equal, Pupils reactive, EOMI, Mucous membr. moist/pink Neck: supple, trachea midline, no JVD Lungs: Clear to auscultation, Normal respiratory effort Cardiovascular: Regular Rate, Regular Rhythm Abdomen: bowel sounds present, no tenderness, no distension. No: rigidity, rebound, guarding, tenderness, distension, CVA tenderness, organomegaly (Female) Exam: Deferred Back Exam: Normal Inspection, Full Range of Motion. No: CVA Tenderness (L), CVA Tenderness (R) Extremities: no edema, normal pulses, no tenderness/swelling, no clubbing, no cyanosis Skin: warm, dry, intact Neurological: no new focal deficit Psy/Mental Status: alert, normal affect, normal mood - Problem List & Annotations (1) C. difficile diarrhea SNOMED Code(s): 5434843216117 Code(s): A04.7 - ENTEROCOLITIS DUE TO CLOSTRIDIUM DIFFICILE Status: Acute Priority: High Current Visit: Yes (2) Dehydration SNOMED Code(s): 68750033 Code(s): E86.0 - DEHYDRATION Status: Acute Priority: High Current Visit : Yes (3) Hypomagnesemia SNOMED Code(s): 392328605 Code(s): E83.42 - HYPOMAGNESEMIA Status: Acute Priority: High Current Visit: Yes (4) History of rheumatoid arthritis SNOMED Code(s): 105379812 Code(s): Z87.39 - PERSONAL HISTORY OF DISEASES OF THE MS SYS AND CONN TISS Status: Chronic Current Visit: Yes (5) Hypokalemia SNOMED Code(s): 85124300 Code(s): E87.6 - HYPOKALEMIA Status: Acute Priority: High Current Visit : No - Problem List Review Problem List Initiated/Reviewed/Updated: Yes - My Orders Last 24 Hours: My Active Orders 06/03/17 09:00 Lisinopril [Prinivil] 10 mg PO DAILY 06/04/17 07:40 Intake and Output Strict [RC] ASDIRECTED 06/04/17 07:47 Gallbladder [Abdomen Ltd] [US] Routine 06/04/17 09:00 Magnesium Oxide 500 mg PO TID@0800,1200,1800 06/04/17 09:06 HEPATITIS PANEL, ACUTE [REF] Routine 06/04/17 10:00 metroNIDAZOLE/Normal Saline [Flagyl 500 MG in NS 100 ML] 500 mg Premix Bag 100 bag IV Q8H 06/05/17 05:11 BILIRUBIN DIRECT [CHEM] AM COMPREHENSIVE METABOLIC PN,CMP [CHEM] AM CRP [C-REACTIVE PROTEIN] [CHEM] AM - Plan Plan:: C. difficile diarrhea Patient was diagnosed with the C. difficile 4 weeks ago and was started on oral vancomycin Symptoms were not getting better so her primary care provider left her on vancomycin 250 mg twice a day after 2 weeks of 250 milligram 4 times a day. C. difficile test came back positive again on 05/31/17 -She has been on vancomycin 250 milligrams 4 times a day orally since admission -I will add Flagyl 500 mg IV 3 times a day today Dehydration, from diarrhea Resolved Encourage oral fluid intake -stop IV fluid today Elevated bilirubin and liver enzymes Looking at her chart from clinic I see she had elevated liver enzymes recently but alk phosphatase was normal -I ordered gallbladder/liver ultrasound -check for hepatitis panel Hypokalemia Potassium 2.4 and admission -Potassium is 5.1 today. -Stop oral potassium chloride and IV fluid infusion that contains potassium chloride Hypomagnesemia -Magnesium was 1.2 on admission. Replaced by IV magnesium sulfate. Essential hypertension Continue lisinopril Rheumatoid arthritis Continue with her home regimen Heparin for DVT prophylaxis
[2017-06-04] MEDS: LORazepam 0.5 MG Tab PO PRN ×2 (12:08→21:58)
[2017-06-04] MEDS: Multivitamins,Therapeutic Tab PO SCH (20:58)
[2017-06-04] MEDS: Thiamine 100 MG Tab PO SCH (20:58)
[2017-06-05] MEDS: metroNIDAZOLE/Normal Saline 500 MG in Premix Bag 100 BAG IV SCH ×2 (02:00→09:57)
[2017-06-05] MEDS: Heparin Sodium 5,000 Units/ML Vial SUBCUT SCH ×2 (06:21→15:14)
[2017-06-05 06:54] LABS: CHLORIDE,CL 103 mmol/L (101-111); SODIUM,NA 137 mmol/L (135-145)
[2017-06-05] MEDS: Nicotine 14 MG/24 Hr Patch TRDERM SCH (09:32)
[2017-06-05] MEDS: Phosphorus #1 250 MG Tab PO SCH ×2 (09:32→15:14)
[2017-06-05] MEDS: Folic Acid 1 MG Tab PO SCH (09:33)
[2017-06-05] MEDS: predniSONE 5 MG Tab PO SCH (09:33)
[2017-06-05] MEDS: Lisinopril 10 MG Tab PO SCH (09:37)
[2017-06-05] MEDS: Vancomycin 50 MG/ML Oral Solution Bottle Kit PO SCH ×2 (09:56→13:30)
[2017-06-05 11:32] VITALS: BP 125/88
--- NOTE | 2017-06-05 13:14 | PCM.DCSUM1 ---
Discharge Summary - Hospital Course Free Text/Narrative:: 56-year-old female with past medical history of rheumatoid arthritis, hypertension, hyperlipidemia, depression, history of alcohol abuse was diagnosed with C. difficile diarrhea about 5 days ago and was started on vancomycin orally. She returned to the clinic about 1 week ago for not improving so vancomycin dose was increased from 125 mg twice a day to 250 mg 4 times a day but her potassium was found to be 2.4 and magnesium 1.2 so she was admitted to the hospital. She continued on vancomycin 250 mg orally 4 times a day. Her magnesium and potassium were replaced. She was dehydrated so she was given IV fluid as well. She received IV potassium chloride in admission to oral potassium chloride 40 meq 3 times a day. Her potassium increased to 5.1 yesterday so all her potassium supplement was stopped. Her potassium today is 5.2. For her diarrhea patient continued to have frequent watery diarrhea so yesterday Flagyl was added and since then she had only 1 bowel movement. During hospitalization she denies any other symptoms such as fever, chills, nausea, vomiting, abdominal pain, urinary symptoms, blood in the stool, any other symptoms or concern. It was found that her LFTs were elevated. Today there are trending down. I did ultrasound of liver and gallbladder and was significant only for fatty liver disease. I ordered hepatitis panel and results are still pending. Today patient was firm and she wants to go home and does not want to stay at the hospital as she states she is feeling better. I recommended one more day of hospitalization but patient wants to go home. She will be discharged home on Flagyl since patient responding to that. She has not been on Flagyl and for her C. difficile before so I believe she does not need to have vancomycin with the Flagyl especially vancomycin did not help. I will stop her home supplemental potassium since her potassium is slightly elevated. She was advised to see her primary care provider early next week and check her potassium level at that time. She wants all her medications be refilled so I did so. Patient stated last time she consumed alcohol once more than 1 months ago. Plan of care during hospitalization: C. difficile diarrhea Patient was diagnosed with the C. difficile 4 weeks ago and was started on oral vancomycin Symptoms were not getting better so her primary care provider left her on vancomycin 250 mg twice a day after 2 weeks of 250 milligram 4 times a day. C. difficile test came back positive again on 05/31/17 She has been on vancomycin 250 milligrams 4 times a day orally since admission Flagyl 500 mg IV 3 times a day was added on 06/04/17 Dehydration, from diarrhea Resolved Encourage oral fluid intake She was on IV fluid but stopped yesterday Elevated bilirubin and liver enzymes Looking at her chart from clinic I see she had elevated liver enzymes recently but alk phosphatase was normal Ultrasound showed fatty liver disease. Hepatitis panel is still pending Hypokalemia Potassium 2.4 and admission Hypomagnesemia Resolved Magnesium was 1.2 on admission. Replaced by IV magnesium sulfate. Essential hypertension Continue lisinopril Rheumatoid arthritis Continue with her home regimen Heparin for DVT prophylaxis - Discharge Data Discharge Date: 06/05/17 Discharge Disposition: Home, Self-Care 01 Condition: Good - Discharge Diagnosis/Problem(s) (1) C. difficile diarrhea SNOMED Code(s): 0268729026189 ICD Code: A04.7 - ENTEROCOLITIS DUE TO CLOSTRIDIUM DIFFICILE Status: Acute Priority: High Current Visit: Yes (2) Dehydration SNOMED Code(s): 56622321 ICD Code: E86.0 - DEHYDRATION Status: Resolved Priority: High Current Visit: Yes (3) Hypomagnesemia SNOMED Code(s): 201697018 ICD Code: E83.42 - HYPOMAGNESEMIA Status: Resolved Priority: High Current Visit: Yes (4) History of rheumatoid arthritis SNOMED Code(s): 166256451 ICD Code: Z87.39 - PERSONAL HISTORY OF DISEASES OF THE MS SYS AND CONN TISS Status: Chronic Current Visit: Yes (5) Hypokalemia SNOMED Code(s): 73406833 ICD Code: E87.6 - HYPOKALEMIA Status: Resolved Priority: High Current Visit: No - Patient Instructions Diet: Heart Healthy Diet Activity: As Tolerated Showering/Bathing: March Shower Notify Provider of: Fever - Discharge Plan Prescriptions/Med Rec: Magnesium Oxide [Magnesium] 400 mg PO TID 30 Days metroNIDAZOLE [Flagyl] 500 mg PO Q8H 14 Days predniSONE [Prednisone] 5 mg PO DAILY 30 Days Home Medications: Home Meds LORazepam [Ativan] 0.5 mg PO Q8H PRN #20 tablet 04/10/17 [Rx] Lisinopril [Prinivil] 10 mg PO DAILY #30 tablet 04/10/17 [Rx] Nicotine [Habitrol] 14 mg TRDERM DAILY #7 patch 04/10/17 [Rx] Folic Acid 1 mg PO DAILY #14 tablet 04/30/17 [Rx] Multivitamins,Therapeutic [Thera] 1 each PO BEDTIME #30 tablet 04/30/17 [Rx] Thiamine [Vitamin B-1] 100 mg PO BEDTIME #14 tablet 04/30/17 [Rx] Phosphorus #1 [Neutra-Phos] 250 mg PO TID 06/02/17 [History] Magnesium Oxide [Magnesium] 400 mg PO TID 30 Days 06/05/17 [Rx] metroNIDAZOLE [Flagyl] 500 mg PO Q8H 14 Days 06/05/17 [Rx] predniSONE [Prednisone] 5 mg PO DAILY 30 Days 06/05/17 [Rx] Patient Handouts: Diarrhea, Adult, Clostridium Difficile Infection, Easy-to- Read - Review of Systems General: Reports: No Symptoms HEENT: Reports: no symptoms Pulmonary: Reports: no symptoms Cardiovascular: Reports: No Symptoms Gastrointestinal: Denies: Abdominal pain, Constipation, Difficulty swallowing, Hematochezia, Melena, Nausea, Vomiting Genitourinary: Reports: no symptoms Musculoskeletal: Reports: no symptoms Skin: Reports: no symptoms Neurological: Reports: No Symptoms Psychiatric: Reports: no symptoms - Patient Data Vitals - Most Recent: Last Vital Signs Temp 37.1 C 06/05/17 11:00 Pulse 84 06/05/17 11:00 Resp 20 06/05/17 11:00 BP 125/88 06/05/17 11:00 Pulse Ox 98 06/05/17 11:00 Weight - Most Recent: 53.796 kg I&O - Last 24 hours: Intake & Output 06/04/17 06/05/17 06/05/17 22:59 06:59 14:59 Intake Total 290 97 94 Balance 290 97 94 Lab Results - Last 24 hrs: Laboratory Results - last 24 hr 06/05/17 06/05/17 Range/Units 05:30 05:40 Sodium 137 (135-145) mmol/L Potassium 5.2 H (3.6-5.0) mmol/L Chloride 103 (101-111) mmol/L Carbon Dioxide 25.0 (21.0-31.0) mmol/L Anion Gap 14.2 BUN 5 L (7-18) mg/dL Creatinine 0.7 (0.6-1.3) mg/dL Est Cr Clr Drug Dosing 77.12 mL/min Estimated GFR (MDRD) > 60 BUN/Creatinine Ratio 7.14 Glucose 76 (74-105) mg/dL Calcium 8.3 L (8.4-10.2) mg/dl Total Bilirubin 1.6 H (0.2-1.0) mg/dL Direct Bilirubin 0.7 H (0.0-0.2) mg/dL AST 103 H (10-42) IU/L ALT 49 (10-60) IU/L Alkaline Phosphatase 141 H (42-121) IU/L C-Reactive Protein 0.9 (0.0-1.3) mg/dL Total Protein 5.0 L (6.7-8.2) g/dl Albumin 2.2 L (3.2-5.5) g/dl Globulin 2.8 Albumin/Globulin Ratio 0.79 Med Orders - Current: Current Medications Acetaminophen (Tylenol) 650 mg PO Q4H PRN PRN Reason: Pain (Mild 1-3)/fever Folic Acid (Folic Acid) 1 mg PO DAILY ON LICENSE OF [facility] Last Admin: 06/05/17 09:33 Dose: 1 mg Heparin Sodium (Porcine) (Heparin Sodium) 5,000 units SUBCUT Q8HR ON LICENSE OF [facility] Last Admin: 06/05/17 06:21 Dose: 5,000 units Metronidazole 500 mg/ Premix 100 mls @ 100 mls/hr IV Q8H ON LICENSE OF [facility] Last Admin: 06/05/17 09:57 Dose: 100 mls/hr Lisinopril (Prinivil) 10 mg PO DAILY ON LICENSE OF [facility] Last Admin: 06/05/17 09:37 Dose: 10 mg Lorazepam (Ativan) 0.5 mg PO Q8H PRN PRN Reason: Anxiety Last Admin: 06/04/17 21:58 Dose: 0.5 mg Magnesium Oxide (Magnesium Oxide) 500 mg PO TID@0800,1200,1800 ON LICENSE OF [facility] Last Admin: 06/05/17 09:32 Dose: 500 mg Multivitamins (Thera) 1 each PO BEDTIME ON LICENSE OF [facility] Last Admin: 06/04/17 20:58 Dose: 1 each Nicotine (Habitrol) 14 mg TRDERM DAILY ON LICENSE OF [facility] Last Admin: 06/05/17 09:32 Dose: 14 mg Ondansetron HCl (Zofran) 4 mg IVPUSH Q4H PRN PRN Reason: Nausea/Vomiting Prednisone (Prednisone) 5 mg PO DAILY@0800 ON LICENSE OF [facility] Last Admin: 06/05/17 09:33 Dose: 5 mg Sodium Phosphate (Neutra-Phos) 250 mg PO TID ON LICENSE OF [facility] Last Admin: 06/05/17 09:32 Dose: 250 mg Thiamine HCl (Vitamin B-1) 100 mg PO BEDTIME ON LICENSE OF [facility] Last Admin: 06/04/17 20:58 Dose: 100 mg Vancomycin HCl (Vancomycin 50 Mg/Ml Soln) 250 mg PO QID ON LICENSE OF [facility] Last Admin: 06/05/17 09:56 Dose: 250 mg Discontinued Medications Potassium Chloride/Sodium Chloride (Normal Saline With 40 Meq Kcl) 1,000 mls @ 100 mls/hr IV ASDIRECTED ON LICENSE OF [facility] Last Admin: 06/04/17 00:07 Dose: 100 mls/hr Magnesium Sulfate 4 gm/ Premix 100 mls @ 100 mls/hr IV ONETIME ONE Stop: 06/03/17 08:41 Last Admin: 06/03/17 08:40 Dose: 100 mls/hr Magnesium Oxide (Magnesium Oxide) 400 mg PO BIDM ON LICENSE OF [facility] Last Admin: 06/02/17 19:14 Dose: Not Given Magnesium Oxide (Magnesium Oxide) 500 mg PO BIDM ON LICENSE OF [facility] Last Admin: 06/03/17 11:04 Dose: Not Given Magnesium Oxide (Magnesium Oxide) 500 mg PO TID@0800,1200,1800 ON LICENSE OF [facility] Magnesium Oxide (Magnesium Oxide) 500 mg PO DAILY ON LICENSE OF [facility] Stop: 06/03/17 11:00 Last Admin: 06/03/17 11:03 Dose: Not Given Miscellaneous Information (Remove Patch) 1 ea TRDERM Q24H ON LICENSE OF [facility] Nicotine (Habitrol) 14 mg TRDERM ONETIME ONE Stop: 06/02/17 18:16 Last Admin: 06/02/17 19:14 Dose: 14 mg Potassium Chloride (Klor-Con 10) 40 meq PO TIDMEALS ON LICENSE OF [facility] Last Admin: 06/03/17 17:53 Dose: 40 meq Sodium Phosphate (Neutra-Phos) 500 mg PO TID ON LICENSE OF [facility] Last Admin: 06/02/17 21:41 Dose: 500 mg - Exam General: Reports: alert, oriented, cooperative. Denies: no acute distress, mild distress, moderate distress, severe distress, sedated, lethargic, obtunded HEENT: Reports: Pupils equal, Pupils reactive, EOMI, Mucous membr. moist/pink Neck: Reports: supple, trachea midline, no JVD Lungs: Reports: Clear to auscultation, Normal respiratory effort Cardiovascular: Reports: Regular Rate, Regular Rhythm Abdomen: Reports: bowel sounds present, soft, no tenderness, no distension. Denies: rigidity, rebound, guarding, tenderness, distension, CVA tenderness, organomegaly (Female) Exam: Deferred Rectal (Female) Exam: Deferred Back Exam: Reports: Normal Inspection, Full Range of Motion Extremities: Reports: no edema, normal pulses, no tenderness/swelling, no clubbing, no cyanosis Skin: Reports: warm, dry, intact Neurological: Reports: no new focal deficit, normal speech, normal tone Psy/Mental Status: Reports: alert, normal affect, normal mood *Q Meaningful Use (DIS) - VTE *Q VTE Criteria *Q: - Stroke *Q Stroke Criteria *Q: - AMI *Q AMI Criteria *Q:
== END 2017-06-05 13:45 | disposition home or self-care (01) | DRG 373 ==
LOC: PREOBSVTOIN 15:18 → EEVIPCON 15:24 → DL.MS 15:24
PROVIDERS: ADMIT Internal Medicine; ATTEND Internal Medicine
DX: A04.7 Enterocolitis due to Clostridium difficile (principal); E87.6 Hypokalemia; E86.0 Dehydration; E83.42 Hypomagnesemia; M06.9 Rheumatoid arthritis, unspecified; I10 Essential (primary) hypertension; F17.210 Nicotine dependence, cigarettes, uncomplicated; E78.5 Hyperlipidemia, unspecified; F32.9 Major depressive disorder, single episode, unspecified; R74.8 Abnormal levels of other serum enzymes; Z79.899 Other long term (current) drug therapy; F10.21 Alcohol dependence, in remission; E80.7 Disorder of bilirubin metabolism, unspecified
CPT/HCPCS: 36415; 76705; 80048; 80053; 80074; 82248; 83735; 84100; 84132; 85025; 85027; 86140; A9270-GY; J1644; J3475; J3480

== ENCOUNTER 2017-06-17 12:51 | Inpatient (IN) | payer MEDICAID ==
[2017-06-17] MEDS ORDERED: Sodium Chloride 0.9% 1,000 ML IV ONE (16:02)
--- NOTE | 2017-06-17 16:51 | EDM.PDOC ---
Scribed by Radha Mckeon 06/17/17 [id number] for Valente Rene PA ED HPI GENERAL MEDICAL PROBLEM - General Chief Complaint: Gastrointestinal Problem Stated Complaint: [id number] WEAKNESS DIZZY FAINT FELL AGAIN Time Seen by Provider: 06/17/17 15:49 Source of Information: Reports: Patient, Family, RN Notes Reviewed History Limitations: Reports: No Limitations - History of Present Illness INITIAL COMMENTS - FREE TEXT/NARRATIVE: Patient fell 3 days ago at home. She has weakness, diarrhea, nausea, vomiting food and medications. Lastmeal [id number] ago. Legs hurt and weak. Location: Reports: Generalized Severity: Severe Improves with: Reports: None Worsens with: Reports: None Associated Symptoms: Reports: No Other Symptoms Bilateral Leg Pain Score (Numeric/FACES): 6 - Related Data Allergies Allergy/AdvReac Type Severity Reaction Status Date / Time No Known Allergies Allergy Verified 06/17/17 13:08 Home Meds: Home Meds LORazepam [Ativan] 0.5 mg PO Q8H PRN #20 tablet 04/10/17 [Rx] Nicotine [Habitrol] 14 mg TRDERM DAILY #7 patch 04/10/17 [Rx] Folic Acid 1 mg PO DAILY #14 tablet 04/30/17 [Rx] Multivitamins,Therapeutic [Thera] 1 each PO BEDTIME #30 tablet 04/30/17 [Rx] Thiamine [Vitamin B-1] 100 mg PO BEDTIME #14 tablet 04/30/17 [Rx] Phosphorus #1 [Neutra-Phos] 250 mg PO TID 06/02/17 [History] Magnesium Oxide [Magnesium] 400 mg PO TID 30 Days 06/05/17 [Rx] metroNIDAZOLE [Flagyl] 500 mg PO Q8H 14 Days 06/05/17 [Rx] predniSONE [Prednisone] 5 mg PO DAILY 30 Days 06/05/17 [Rx] Lisinopril [Prinivil] 40 mg PO DAILY 06/17/17 [History] Potassium Chloride 20 meq PO TID 06/17/17 [History] Past Medical History HEENT History: Reports: Other (See Below) Other HEENT History: reading glasses Cardiovascular History: Reports: Hypertension Respiratory History: Reports: Other (See Below) Other Respiratory History: bronchitis in past Gastrointestinal History: Reports: Chronic Constipation Genitourinary History: Reports: None Other Genitourinary History: current UTI Other OB/BYN History: Had hysterectory about 10 years ago Musculoskeletal History: Reports: Arthritis, Neck Pain, Chronic, Other (See Below) Other Musculoskeletal History: lower back pain Neurological History: Reports: Neuropathy, Peripheral, Other (See Below) Other Neuro History: numbness/tingling to left leg and bilateral feet Psychiatric History: Reports: Anxiety, Depression Other Psychiatric History: pt denies Endocrine/Metabolic History: Reports: Osteopenia Hematologic History: Reports: Anemia, Other (See Below) (Low potassium and magnesium) - Infectious Disease History Infectious Disease History: Reports: C-Difficile, Chicken Pox Other Infectious Disease History: pt denies - Past Surgical History Female Surgical History: Reports: Hysterectomy, Salpingo-Oophorectomy Social & Family History - Family History Family Medical History: Noncontributory - Tobacco Use Smoking Status *Q: Current Every Day Smoker Years of Tobacco use: 30 Packs/Tins Daily: 1 Used Tobacco, but Quit: No Second Hand Smoke Exposure: Yes - Caffeine Use Caffeine Use: Reports: Coffee - Alcohol Use Days Per Week of Alcohol Use: 4 Number of Drinks Per Day: 2 Total Drinks Per Week: 8 - Recreational Drug Use Recreational Drug Use: No - Living Situation & Occupation Living situation: Reports: Single, Alone ED ROS GENERAL - Review of Systems Review Of Systems: ROS reveals no pertinent complaints other than HPI. ED EXAM, GI/ABD - Physical Exam Exam: See Below Exam Limited By: No Limitations General Appearance: Alert, WD/WN, No Apparent Distress Eyes: Bilateral: Normal Appearance Ears: Normal External Exam, Normal Canal, Hearing Grossly Normal, Normal TMs Nose: Normal Inspection, Normal Mucosa, No Blood Throat/Mouth: Normal Inspection, Normal Lips, Normal Teeth, Normal Gums, Normal Oropharynx, Normal Voice, No Airway Compromise Head: Atraumatic, Normocephalic Neck: Normal Inspection Respiratory/Chest: No Respiratory Distress, Lungs Clear, Normal Breath Sounds, No Accessory Muscle Use, Chest Non-Tender Cardiovascular: Normal Peripheral Pulses, Regular Rate, Rhythm, No Edema, No Gallop, No JVD, No Murmur, No Rub GI/Abdominal Exam: Normal Bowel Sounds, Soft, Non-Tender, No Organomegaly, No Distention, No Abnormal Bruit, No Mass, Pelvis Stable (Female) Exam: Deferred Rectal (Female) Exam: Deferred Back Exam: Normal Inspection, Full Range of Motion, NT Extremities: Other (generalized weakness and muscle atrophy) Neurological: Alert, Oriented, CN II-XII Intact, Normal Cognition, Normal Gait, Normal Reflexes, No Motor/Sensory Deficits Psychiatric: Depressed Mood, Flat Affect Skin Exam: Warm, Dry, Intact, Normal Color, No Rash Lymphatic: No Adenopathy Course - Vital Signs Last Recorded V/S: Last Vital Signs Temp 37.1 C 06/17/17 13:17 Pulse 124 H 06/17/17 13:17 Resp 18 06/17/17 13:17 BP 103/83 06/17/17 13:17 Pulse Ox 99 06/17/17 13:17 - Orders/Labs/Meds Orders: Active Orders 24 hr Category Date Time Status DRUG SCREEN URINE BIORAD [URCHEM] Stat Lab 06/17/17 15:44 Uncollected UA W/MICROSCOPIC [URIN] Stat Lab 06/17/17 15:44 Uncollected Sodium Chloride 0.9% [Normal Saline] 1,000 ml Med 06/17/17 16:02 Active IV .BOLUS Medication Orders Sodium Chloride (Normal Saline) 1,000 mls @ 250 mls/hr IV .BOLUS ONE Stop: 06/17/17 20:01 Last Admin: 06/17/17 16:09 Dose: 250 mls/hr Labs: Laboratory Tests 06/17/17 06/17/17 06/17/17 Range/Units 15:53 15:53 15:53 WBC 7.5 (5.0-10.0) 10^3/uL RBC 3.43 L (4.2-5.4) 10^6/uL Hgb 12.9 (12.0-16.0) g/dL Hct 37.8 (37.0-47.0) % MCV 110.2 H (80-100) fL MCH 37.6 H (27.0-34.0) pg MCHC 34.1 (33.0-35.0) g/dL Plt Count 247 (150-450) 10^3/uL Neut % (Auto) 58.3 (42.2-75.2) % Lymph % (Auto) 29.2 (20.5-50.1) % [place] % (Auto) 11.6 H (2-8) % Eos % (Auto) 0.1 L (1.0-3.0) % Baso % (Auto) 0.8 (0.0-1.0) % Sodium (135-145) mmol/L Potassium (3.6-5.0) mmol/L Chloride (101-111) mmol/L Carbon Dioxide (21.0-31.0) mmol/L Anion Gap BUN (7-18) mg/dL Creatinine (0.6-1.3) mg/dL Est Cr Clr Drug Dosing mL/min Estimated GFR (MDRD) BUN/Creatinine Ratio Glucose (74-105) mg/dL Lactic Acid 1.6 (0.5-2.2) mmol/L Calcium (8.4-10.2) mg/dl Magnesium 1.6 L (1.8-2.5) mg/dL Total Bilirubin (0.2-1.0) mg/dL AST (10-42) IU/L ALT (10-60) IU/L Alkaline Phosphatase (42-121) IU/L Total Protein (6.7-8.2) g/dl Albumin (3.2-5.5) g/dl Globulin Albumin/Globulin Ratio Amylase 57 (28-100) U/L Lipase 49 (22-51) U/L 07/27/17 Range/Units 15:53 WBC (5.0-10.0) 10^3/uL RBC (4.2-5.4) 10^6/uL Hgb (12.0-16.0) g/dL Hct (37.0-47.0) % MCV (80-100) fL MCH (27.0-34.0) pg MCHC (33.0-35.0) g/dL Plt Count (150-450) 10^3/uL Neut % (Auto) (42.2-75.2) % Lymph % (Auto) (20.5-50.1) % [place] % (Auto) (2-8) % Eos % (Auto) (1.0-3.0) % Baso % (Auto) (0.0-1.0) % Sodium 137 (135-145) mmol/L Potassium 4.6 (3.6-5.0) mmol/L Chloride 98 L (101-111) mmol/L Carbon Dioxide 25.0 (21.0-31.0) mmol/L Anion Gap 18.6 BUN 13 (7-18) mg/dL Creatinine 1.0 (0.6-1.3) mg/dL Est Cr Clr Drug Dosing 53.71 mL/min Estimated GFR (MDRD) 58 BUN/Creatinine Ratio 13.00 Glucose 92 (74-105) mg/dL Lactic Acid (0.5-2.2) mmol/L Calcium 9.0 (8.4-10.2) mg/dl Magnesium (1.8-2.5) mg/dL Total Bilirubin 1.9 H (0.2-1.0) mg/dL AST 69 H (10-42) IU/L ALT 27 (10-60) IU/L Alkaline Phosphatase 126 H (42-121) IU/L Total Protein 7.1 (6.7-8.2) g/dl Albumin 3.3 (3.2-5.5) g/dl Globulin 3.8 Albumin/Globulin Ratio 0.87 Amylase (28-100) U/L Lipase (22-51) U/L Meds: Medications Generic Name Dose Route Start Last Admin Trade Name Freq PRN Reason Stop Dose Admin Sodium Chloride 1,000 mls @ 250 mls/hr 06/17/17 16:02 06/17/17 16:09 Normal Saline IV 06/17/17 20:01 250 mls/hr .BOLUS ONE Administration Departure - Departure Time of Disposition: 16:48 Disposition: Admitted As Inpatient 67 Condition: Poor Clinical Impression: Diarrhea Nausea & vomiting Qualifiers: Vomiting type: unspecified Vomiting Intractability: intractable Qualified Code( s): R11.2 - Nausea with vomiting, unspecified - Discharge Information Forms: ED Department Discharge Care Plan Goals: Discussed the examination, history and lab results with Dr. Echeverria. Dr. Echeverria accepted the patient for continued evaluation and further management. - My Orders Last 24 Hours: My Active Orders 06/17/17 15:44 DRUG SCREEN URINE BIORAD [URCHEM] Stat UA W/MICROSCOPIC [URIN] Stat 06/17/17 16:02 Sodium Chloride 0.9% [Normal Saline] 1,000 ml IV .BOLUS - Assessment/Plan Last 24 Hours: My Active Orders 06/17/17 15:44 DRUG SCREEN URINE BIORAD [URCHEM] Stat UA W/MICROSCOPIC [URIN] Stat 06/17/17 16:02 Sodium Chloride 0.9% [Normal Saline] 1,000 ml IV .BOLUS I have read and agree with the documentation that has been completed regarding this visit. By signing this record, I attest that the documentation was completed in my physical presence and is an accurate record of the encounter.
[2017-06-17] MEDS ORDERED: Ondansetron 4 MG Tab.DIS PO PRN (17:28)
[2017-06-17] MEDS ORDERED: Sodium Chloride 0.9% 10 ML Syringe FLUSH PRN (17:42)
[2017-06-17] MEDS ORDERED: methylPREDNISolone Sodium Succinate 125 MG/2 ML SDV IVPUSH ONE (17:58)
--- NOTE | 2017-06-17 18:12 | PCM.HP ---
H&P History of Present Illness - General Date of Service: 06/17/17 Admit Problem/Dx: Admission Diagnosis/Problem Admission Diagnosis/Problem Nausea and vomiting Source of Information: Patient History Limitations: Reports: No Limitations - History of Present Illness Initial Comments - Free Text/Narative: Patient is a 56 year old female was admitted here because of profound weakness. She was brought in by her sister today because she looked weak, not able to take care of herself at home. Yesterday she called her sister and sister reports that she is too weak to even get up. 5 days ago, patient fell and reports that she blacked out. she had another fall two days ago ago but did not pass out. Her lower extremities have been weak and she has been ambulating using a cane. Yesterday, Jose called her and reports to her PCP that she has been short of breath. Patient reports that she gets short of breath with exertion and with occasional cough and wheezing. no fever nor chills denies any chest pain nor palpitations. she reports she gets nauseated with taking her pills especially the big pills which we identified as the potassium pills. she vomited two days ago, she was recently admitted because of profound electrolyte imbalances and was deemed from diarrhea, later on tested positive for c diff. reports that stools are starting to form now. Patient admits that she seldom eats. She does not have the appetite. she clearly denies giving up on life. she does not want to take any more pills for depressed mood. Bilateral Leg Pain Score (Numeric/FACES): 6 - Related Data Allergies/Adverse Reactions: Allergies Allergy/AdvReac Type Severity Reaction Status Date / Time No Known Allergies Allergy Verified 06/17/17 18:03 Home Medications: Home Meds LORazepam [Ativan] 0.5 mg PO Q8H PRN #20 tablet 04/10/17 [Rx] Folic Acid 1 mg PO DAILY #14 tablet 04/30/17 [Rx] Thiamine [Vitamin B-1] 100 mg PO BEDTIME #14 tablet 04/30/17 [Rx] Phosphorus #1 [Neutra-Phos] 250 mg PO TID 06/02/17 [History] Magnesium Oxide [Magnesium] 400 mg PO TID 30 Days 06/05/17 [Rx] metroNIDAZOLE [Flagyl] 500 mg PO Q8H 14 Days 06/05/17 [Rx] predniSONE [Prednisone] 5 mg PO DAILY 30 Days 06/05/17 [Rx] Lisinopril [Prinivil] 40 mg PO DAILY 06/17/17 [History] Potassium Chloride 20 meq PO TID 06/17/17 [History] Past Medical History HEENT History: Reports: Other (See Below) Other HEENT History: reading glasses Cardiovascular History: Reports: Hypertension Respiratory History: Reports: Other (See Below) Other Respiratory History: bronchitis in past Gastrointestinal History: Reports: Chronic Constipation Genitourinary History: Reports: None Other Genitourinary History: current UTI Other OB/BYN History: Had hysterectory about 10 years ago Musculoskeletal History: Reports: Arthritis, Neck Pain, Chronic, Other (See Below) Other Musculoskeletal History: lower back pain Neurological History: Reports: Neuropathy, Peripheral, Other (See Below) Other Neuro History: numbness/tingling to left leg and bilateral feet Psychiatric History: Reports: Anxiety, Depression Other Psychiatric History: pt denies Endocrine/Metabolic History: Reports: Osteopenia Hematologic History: Reports: Anemia, Other (See Below) (Low potassium and magnesium) - Infectious Disease History Infectious Disease History: Reports: C-Difficile, Chicken Pox Other Infectious Disease History: pt denies - Past Surgical History Female Surgical History: Reports: Hysterectomy, Salpingo-Oophorectomy Social & Family History - Family History Family Medical History: Noncontributory - Tobacco Use Smoking Status *Q: Current Every Day Smoker Years of Tobacco use: 30 Packs/Tins Daily: 1 Used Tobacco, but Quit: No Second Hand Smoke Exposure: Yes - Caffeine Use Caffeine Use: Reports: Coffee - Alcohol Use Days Per Week of Alcohol Use: 4 Number of Drinks Per Day: 2 Total Drinks Per Week: 8 - Recreational Drug Use Recreational Drug Use: No - Living Situation & Occupation Living situation: Reports: Single, Alone H&P Review of Systems - Review of Systems: Review Of Systems: See Below General: Reports: Weakness Pulmonary: Reports: Shortness of Breath, Wheezing, Cough Cardiovascular: Reports: Dyspnea on Exertion Genitourinary: Reports: No Symptoms Musculoskeletal: Reports: Back Pain Skin: Reports: No Symptoms Neurological: Reports: Numbness, Tingling Hematologic/Lymphatic: Reports: No Symptoms Immunologic: Reports: No Symptoms Exam - Exam Exam: See Below - Vital Signs Vital Signs: Last Vital Signs Temp 37.2 C 06/17/17 17:27 Pulse 94 06/17/17 17:27 Resp 20 06/17/17 17:27 BP 115/88 06/17/17 17:27 Pulse Ox 99 06/17/17 17:27 Weight: 52.345 kg - Exam General: Alert, Oriented Lungs: Normal Respiratory Effort, Wheezing (right lung field) Cardiovascular: Regular Rate, Regular Rhythm GI/Abdominal Exam: Normal Bowel Sounds, Soft, Non-Tender Extremities: No Pedal Edema Skin: Warm, Dry Neurological: Cranial Nerves Intact Neuro Extensive - Mental Status: Alert, Oriented x3 Neuro Extensive - Motor, Sensory, Reflexes: CN II-XII Intact Psychiatric: Alert, Normal Affect, Normal Mood - Patient Data Result Diagrams: 06/17/17 15:53 06/17/17 15:53 *Q Meaningful Use (ADM) - VTE *Q VTE Criteria *Q: - Stroke *Q Stroke Criteria *Q: - AMI *Q AMI Criteria *Q: Problem List Initiated/Reviewed/Updated: Yes Orders Last 24hrs: Active Orders 24 hr Category Date Time Status Orthostatic Vital Signs [RC] ASDIRECTED Care 06/17/17 17:59 Active Peripheral IV Care [RC] . DIRECTED Care 06/17/17 17:42 Active Regular Diet [DIET] Diet 06/17/17 Dinner Active BASIC METABOLIC PANEL,BMP [CHEM] Routine Lab 06/18/17 06:00 Ordered Sodium Chloride 0.9% [Saline Flush] Med 06/17/17 17:42 Active 10 ml FLUSH ASDIRECTED PRN Peripheral IV Insertion Adult [OM.PC] Routine Oth 06/17/17 17:42 Ordered Medication Orders Enoxaparin Sodium (Lovenox) 40 mg SUBCUT DAILY [facility] Sodium Chloride (Normal Saline) 1,000 mls @ 250 mls/hr IV .BOLUS ONE Stop: 06/17/17 20:01 Last Admin: 06/17/17 16:09 Dose: 250 mls/hr Sodium Chloride (Normal Saline) 1,000 mls @ 125 mls/hr IV ASDIRECTED [facility] Ondansetron HCl (Zofran Odt) 4 mg PO Q6H PRN PRN Reason: nausea, able to take PO Sodium Chloride (Saline Flush) 10 ml FLUSH ASDIRECTED PRN PRN Reason: Keep Vein Open Assessment/Plan Comment:: 1. Acute bronchitis - IV solumedrol - IV azithromycin - incentive spirometry - duoneb nebulizations prn 2- generalized weakness, multifactorial (inanition, debility, underlying bronchitis) - IV fluids - recheck electorlytes/BMP - PT/OT consult 3. Hypomagnesemia - replace Magnesium and recheck level 4. Rheumatoid arthritis - outpatient follow up 5. History of Cdiff - stools are starting to form now - continue to complete patient's flagyl - add yogurt to diet twice a day 6. DVT prophylaxis - Lovenox
[2017-06-17] MEDS ORDERED: Azithromycin 500 MG in Sodium Chloride 0.9% 250 ML IV ONE (18:41)
[2017-06-17] MEDS ORDERED: Albuterol/Ipratropium 3.0-0.5 MG/3 ML Neb Soln NEB PRN (18:51)
[2017-06-17] MEDS: Potassium Chloride 10 MEQ Tab.ER PO SCH (19:50)
[2017-06-17] MEDS: LORazepam 0.5 MG Tab PO PRN (19:59)
[2017-06-17] MEDS: Sodium Chloride 0.9% 1,000 ML IV SCH (20:36)
[2017-06-17] MEDS: Nicotine 14 MG/24 Hr Patch TRDERM SCH (21:13)
[2017-06-17] MEDS: Thiamine 100 MG Tab PO SCH (21:14)
[2017-06-17] MEDS: Phosphorus #1 250 MG Tab PO SCH (21:15)
[2017-06-17] MEDS: metroNIDAZOLE 250 MG Tab PO SCH (22:15)
[2017-06-18] MEDS: Sodium Chloride 0.9% 1,000 ML IV SCH (05:56)
[2017-06-18] MEDS: metroNIDAZOLE 250 MG Tab PO SCH ×3 (05:58→22:57)
[2017-06-18 06:37] LABS: CHLORIDE,CL 104 mmol/L (101-111); SODIUM,NA 138 mmol/L (135-145)
[2017-06-18] MEDS: Lisinopril 20 MG Tab PO SCH (09:12)
[2017-06-18] MEDS: Phosphorus #1 250 MG Tab PO SCH ×3 (09:12→20:26)
[2017-06-18] MEDS: Potassium Chloride 10 MEQ Tab.ER PO SCH ×3 (09:12→17:56)
[2017-06-18] MEDS: Azithromycin 250 MG Tab PO SCH (09:12)
[2017-06-18] MEDS: Nicotine 14 MG/24 Hr Patch TRDERM SCH (09:13)
[2017-06-18] MEDS: Folic Acid 1 MG Tab PO SCH (09:13)
[2017-06-18] MEDS: Enoxaparin 40 MG/0.4 ML Syringe SUBCUT SCH (09:14)
[2017-06-18] MEDS: predniSONE 5 MG Tab PO SCH (11:49)
--- NOTE | 2017-06-18 12:08 | PCM.PN ---
- General Info Date of Service: 06/18/17 Admission Dx/Problem (Free Text): Admission Diagnosis/Problem Admission Diagnosis/Problem Nausea and vomiting, sob with activity, falls Subjective Update: feeling stronger has been up and ambulating independently Reports no shortness of breath, no chest pain She is still having loose bowel movements, had 3 mucusy bowel movement today. No associated abdominal pain, no fever. Functional Status: Reports: Pain Controlled - Review of Systems General: Reports: Weakness (Improving). Denies: Fever Pulmonary: Denies: Shortness of Breath Cardiovascular: Denies: Chest Pain Gastrointestinal: Denies: Abdominal Pain Genitourinary: Denies: Frequency Neurological: Denies: Confusion - Patient Data Vitals - Most Recent: Last Vital Signs Temp 37.2 C 06/18/17 11:00 Pulse 87 06/18/17 11:00 Resp 20 06/18/17 11:00 BP 118/72 06/18/17 11:00 Pulse Ox 99 06/18/17 11:00 Orthostatic Blood Pressure [ 109/76 Standing] Orthostatic Blood Pressure [ 118/85 Sitting] Orthostatic Blood Pressure [ 119/78 Supine] Weight - Most Recent: 52.345 kg I&O - Last 24 Hours: Intake & Output 06/17/17 06/18/17 06/18/17 22:59 06:59 14:59 Intake Total 1418 1123 Output Total 150 200 Balance 1268 923 Lab Results Last 24 Hours: Laboratory Results - last 24 hr 06/18/17 Range/Units 06:00 Sodium 138 (135-145) mmol/L Potassium 5.0 (3.6-5.0) mmol/L Chloride 104 (101-111) mmol/L Carbon Dioxide 21.0 (21.0-31.0) mmol/L Anion Gap 18.0 BUN 13 (7-18) mg/dL Creatinine 0.9 (0.6-1.3) mg/dL Est Cr Clr Drug Dosing 58.36 mL/min Estimated GFR (MDRD) > 60 Glucose 121 H (74-105) mg/dL Calcium 8.1 L (8.4-10.2) mg/dl Magnesium 1.8 (1.8-2.5) mg/dL Med Orders - Current: Current Medications Albuterol/Ipratropium (Duoneb 3.0-0.5 Mg/3 Ml) 3 ml NEB Q6HRRT PRN PRN Reason: Wheezing Last Admin: 06/17/17 22:34 Dose: 3 ml Azithromycin (Zithromax) 250 mg PO DAILY [facility] Stop: 06/21/17 23:59 Last Admin: 06/18/17 09:12 Dose: 250 mg Enoxaparin Sodium (Lovenox) 40 mg SUBCUT DAILY [facility] Last Admin: 06/18/17 09:14 Dose: 40 mg Folic Acid (Folic Acid) 1 mg PO DAILY [facility] Last Admin: 06/18/17 09:13 Dose: 1 mg Lisinopril (Prinivil) 40 mg PO DAILY [facility] Last Admin: 06/18/17 09:12 Dose: 40 mg Lorazepam (Ativan) 0.5 mg PO Q8H PRN PRN Reason: Anxiety Last Admin: 06/17/17 19:59 Dose: 0.5 mg Magnesium Oxide (Magnesium Oxide) 500 mg PO TID [facility] Last Admin: 06/18/17 09:12 Dose: 500 mg Metronidazole (Metronidazole) 500 mg PO Q8H [facility] Last Admin: 06/18/17 05:58 Dose: 500 mg Miscellaneous Information (Check Patch) 1 ea TRDERM BEDTIME [facility] Nicotine (Habitrol) 14 mg TRDERM DAILY [facility] Last Admin: 06/18/17 09:13 Dose: 14 mg Ondansetron HCl (Zofran Odt) 4 mg PO Q6H PRN PRN Reason: nausea, able to take PO Potassium Chloride (Klor-Con 10) 20 meq PO TIDMEALS [facility] Last Admin: 06/18/17 11:49 Dose: 20 meq Prednisone (Prednisone) 5 mg PO WITHBREAKFAST [facility] Last Admin: 06/18/17 11:49 Dose: 5 mg Sodium Chloride (Saline Flush) 10 ml FLUSH ASDIRECTED PRN PRN Reason: Keep Vein Open Sodium Phosphate (Neutra-Phos) 250 mg PO TID [facility] Last Admin: 06/18/17 09:12 Dose: 250 mg Thiamine HCl (Vitamin B-1) 100 mg PO BEDTIME [facility] Last Admin: 06/17/17 21:14 Dose: 100 mg Discontinued Medications Sodium Chloride (Normal Saline) 1,000 mls @ 250 mls/hr IV .BOLUS ONE Stop: 06/17/17 20:01 Last Admin: 06/17/17 16:09 Dose: 250 mls/hr Sodium Chloride (Normal Saline) 1,000 mls @ 125 mls/hr IV ASDIRECTED [facility] Last Admin: 06/18/17 05:56 Dose: 125 mls/hr Magnesium Sulfate/Dextrose 1 (gm/ Premix) 100 mls @ 100 mls/hr IV ONETIME ONE Stop: 06/17/17 19:38 Last Admin: 06/17/17 19:45 Dose: 100 mls/hr Azithromycin 500 mg/ Sodium (Chloride) 250 mls @ 250 mls/hr IV ONETIME ONE Stop: 06/17/17 19:40 Last Admin: 06/17/17 21:08 Dose: 250 mls/hr Methylprednisolone Sodium Succinate (Solu-Medrol) 125 mg IVPUSH ONETIME ONE Stop: 06/17/17 17:59 Last Admin: 06/17/17 18:30 Dose: 125 mg - Exam General: Alert, Oriented Neck: Supple Lungs: Clear to Auscultation, Normal Respiratory Effort. No: Rales, Rhonchi Cardiovascular: Regular Rate, Regular Rhythm Extremities: No Pedal Edema Skin: Warm, Dry Neurological: No New Focal Deficit Psy/Mental Status: Alert, Normal Affect, Normal Mood - Problem List & Annotations (1) C. difficile diarrhea SNOMED Code(s): 1463638250456 Code(s): A04.7 - ENTEROCOLITIS DUE TO CLOSTRIDIUM DIFFICILE Status: Acute Priority: High Current Visit: No - Problem List Review Problem List Initiated/Reviewed/Updated: Yes - My Orders Last 24 Hours: My Active Orders 06/18/17 09:17 Flutter Valve Therapy [RT Chest Physiotherapy] [RC] ASDIRECTED 06/18/17 11:30 predniSONE 5 mg PO WITHBREAKFAST - Plan Plan:: 1. Acute bronchitis Appears improved, no further fever No shortness of breath or wheezing on examination - Received IV solumedrol will continue with home dose prednisone - Received IV azithromycin. I will hold further antibiotics given the concern of worsening or returning of C. difficile infection - incentive spirometry - duoneb nebulizations prn 2- generalized weakness, multifactorial (inanition, debility, underlying bronchitis) - Improved with IV fluid, will stop IV fluids - recheck electorlytes/BMP - PT/OT consult 3. Hypomagnesemia - replaced Magnesium and recheck level in the morning 4. Rheumatoid arthritis - outpatient follow up, continue maintenance steroid dose 5. History of Cdiff - stools are starting to form now - continue to complete patient's flagyl 6. DVT prophylaxis - Lovenox
[2017-06-18] MEDS: LORazepam 0.5 MG Tab PO PRN (20:27)
[2017-06-18] MEDS: Thiamine 100 MG Tab PO SCH (20:27)
[2017-06-18] MEDS ORDERED: Check NICOTINE Patch TRDERM SCH (21:00)
[2017-06-18] MEDS ORDERED: metroNIDAZOLE 250 MG Tab PO SCH (22:00)
[2017-06-19] MEDS: metroNIDAZOLE 250 MG Tab PO SCH ×2 (06:05→14:19)
[2017-06-19 06:49] LABS: CHLORIDE,CL 105 mmol/L (101-111); SODIUM,NA 138 mmol/L (135-145)
[2017-06-19 07:20] VITALS: BP 122/85
[2017-06-19] MEDS: Phosphorus #1 250 MG Tab PO SCH ×2 (09:01→14:19)
[2017-06-19] MEDS: Azithromycin 250 MG Tab PO SCH (09:01)
[2017-06-19] MEDS: Potassium Chloride 10 MEQ Tab.ER PO SCH ×2 (09:01→12:29)
[2017-06-19] MEDS: predniSONE 5 MG Tab PO SCH (09:02)
[2017-06-19] MEDS: Lisinopril 20 MG Tab PO SCH (09:02)
[2017-06-19] MEDS: Folic Acid 1 MG Tab PO SCH (09:02)
[2017-06-19] MEDS: Nicotine 14 MG/24 Hr Patch TRDERM SCH (09:03)
[2017-06-19] MEDS: Enoxaparin 40 MG/0.4 ML Syringe SUBCUT SCH (09:03)
--- NOTE | 2017-06-19 12:27 | PCM.DCSUM1 ---
Discharge Summary - Hospital Course Free Text/Narrative:: presented with weakness, diarrhea, sob 1. Acute bronchitis Appears improved, no further fever No shortness of breath or wheezing on examination - Received IV solumedrol will continue with home dose prednisone - Received IV azithromycin. I will hold further antibiotics given the concern of worsening or returning of C. difficile infection - incentive spirometry - duoneb nebulizations prn 2- generalized weakness, multifactorial (inanition, debility, underlying bronchitis) - Improved with IV fluid - does not want home care 3. Hypomagnesemia - continue to replace Magnesium 4. Rheumatoid arthritis - outpatient follow up, continue maintenance steroid dose 5. History of Cdiff - stools are formed now , Cdiff negative - continue to complete patient's flagyl - Discharge Data Discharge Date: 06/19/17 Discharge Disposition: Home, Self-Care 01 Condition: Stable - Discharge Diagnosis/Problem(s) (1) C. difficile diarrhea SNOMED Code(s): 6283408662315 ICD Code: A04.7 - ENTEROCOLITIS DUE TO CLOSTRIDIUM DIFFICILE Status: Acute Priority: High Current Visit: No - Patient Summary/Data Consults: Consultations 06/17/17 18:39 OT Evaluation and Treatment [CONS] Routine PT Evaluation and Treatment [CONS] Routine - Patient Instructions Diet: Heart Healthy Diet Activity: As Tolerated - Discharge Plan Home Medications: Home Meds LORazepam [Ativan] 0.5 mg PO Q8H PRN #20 tablet 04/10/17 [Rx] Folic Acid 1 mg PO DAILY #14 tablet 04/30/17 [Rx] Thiamine [Vitamin B-1] 100 mg PO BEDTIME #14 tablet 04/30/17 [Rx] Phosphorus #1 [Neutra-Phos] 250 mg PO TID 06/02/17 [History] Magnesium Oxide [Magnesium] 400 mg PO TID 30 Days 06/05/17 [Rx] metroNIDAZOLE [Flagyl] 500 mg PO Q8H 14 Days 06/05/17 [Rx] predniSONE [Prednisone] 5 mg PO DAILY 30 Days 06/05/17 [Rx] Lisinopril [Prinivil] 40 mg PO DAILY 06/17/17 [History] Potassium Chloride 20 meq PO TID 06/17/17 [History] Referrals: PCP,None [Primary Care Provider] - (in 2-[address] Echeverria) - General Info Date of Service: 06/19/17 Functional Status: Reports: Tolerating Diet - Review of Systems General: Denies: Fever, Weakness Pulmonary: Denies: Shortness of Breath Cardiovascular: Denies: Chest Pain Gastrointestinal: Denies: Abdominal Pain Genitourinary: Denies: Dysuria - Patient Data Vitals - Most Recent: Last Vital Signs Temp 36.3 C 06/19/17 07:00 Pulse 71 06/19/17 07:00 Resp 20 06/19/17 07:00 BP 122/85 06/19/17 09:02 Pulse Ox 100 06/19/17 07:00 Orthostatic Blood Pressure [ 109/76 Standing] Orthostatic Blood Pressure [ 118/85 Sitting] Orthostatic Blood Pressure [ 119/78 Supine] Weight - Most Recent: 52.345 kg I&O - Last 24 hours: Intake & Output 06/18/17 06/19/17 06/19/17 22:59 06:59 14:59 Intake Total 800 200 Output Total 1300 Balance 800 -1300 200 Lab Results - Last 24 hrs: Laboratory Results - last 24 hr 06/19/17 06/19/17 Range/Units 06:00 06:00 WBC 5.5 (5.0-10.0) 10^3/uL RBC 2.83 L (4.2-5.4) 10^6/uL Hgb 10.5 L (12.0-16.0) g/dL Hct 31.4 L (37.0-47.0) % MCV 111.0 H (80-100) fL MCH 37.1 H (27.0-34.0) pg MCHC 33.4 (33.0-35.0) g/dL Plt Count 178 (150-450) 10^3/uL Neut % (Auto) 58.1 (42.2-75.2) % Lymph % (Auto) 31.6 (20.5-50.1) % Barren % (Auto) 9.0 H (2-8) % Eos % (Auto) 1.1 (1.0-3.0) % Baso % (Auto) 0.2 (0.0-1.0) % Sodium 138 (135-145) mmol/L Potassium 4.8 (3.6-5.0) mmol/L Chloride 105 (101-111) mmol/L Carbon Dioxide 25.0 (21.0-31.0) mmol/L Anion Gap 12.8 BUN 10 (7-18) mg/dL Creatinine 0.7 (0.6-1.3) mg/dL Est Cr Clr Drug Dosing 75.04 mL/min Estimated GFR (MDRD) > 60 Glucose 88 (74-105) mg/dL Calcium 8.3 L (8.4-10.2) mg/dl Phosphorus 3.8 (2.5-4.6) mg/dL Magnesium 1.7 L (1.8-2.5) mg/dL [facility] Results - Last 24 hrs: Microbiology 06/17/17 21:00 Clostridium difficile (PCR) - Final Stool / Feces Med Orders - Current: Current Medications Albuterol/Ipratropium (Duoneb 3.0-0.5 Mg/3 Ml) 3 ml NEB Q6HRRT PRN PRN Reason: Wheezing Last Admin: 06/17/17 22:34 Dose: 3 ml Azithromycin (Zithromax) 250 mg PO DAILY [facility] Stop: 06/21/17 23:59 Last Admin: 06/19/17 09:01 Dose: 250 mg Enoxaparin Sodium (Lovenox) 40 mg SUBCUT DAILY [facility] Last Admin: 06/19/17 09:03 Dose: 40 mg Folic Acid (Folic Acid) 1 mg PO DAILY [facility] Last Admin: 06/19/17 09:02 Dose: 1 mg Lisinopril (Prinivil) 40 mg PO DAILY [facility] Last Admin: 06/19/17 09:02 Dose: 40 mg Lorazepam (Ativan) 0.5 mg PO Q8H PRN PRN Reason: Anxiety Last Admin: 06/18/17 20:27 Dose: 0.5 mg Magnesium Oxide (Magnesium Oxide) 500 mg PO TID [facility] Last Admin: 06/19/17 09:01 Dose: 500 mg Metronidazole (Metronidazole) 500 mg PO Q8H [facility] Last Admin: 06/19/17 06:05 Dose: 500 mg Miscellaneous Information (Check Patch) 1 ea TRDERM BEDTIME [facility] Last Admin: 06/18/17 20:25 Dose: Not Given Nicotine (Habitrol) 14 mg TRDERM DAILY [facility] Last Admin: 06/19/17 09:03 Dose: 14 mg Ondansetron HCl (Zofran Odt) 4 mg PO Q6H PRN PRN Reason: nausea, able to take PO Potassium Chloride (Klor-Con 10) 20 meq PO TIDMEALS [facility] Last Admin: 06/19/17 09:01 Dose: 20 meq Prednisone (Prednisone) 5 mg PO WITHBREAKFAST [facility] Last Admin: 06/19/17 09:02 Dose: 5 mg Sodium Chloride (Saline Flush) 10 ml FLUSH ASDIRECTED PRN PRN Reason: Keep Vein Open Sodium Phosphate (Neutra-Phos) 250 mg PO TID [facility] Last Admin: 06/19/17 09:01 Dose: 250 mg Thiamine HCl (Vitamin B-1) 100 mg PO BEDTIME [facility] Last Admin: 06/18/17 20:27 Dose: 100 mg Discontinued Medications Sodium Chloride (Normal Saline) 1,000 mls @ 250 mls/hr IV .BOLUS ONE Stop: 06/17/17 20:01 Last Admin: 06/17/17 16:09 Dose: 250 mls/hr Sodium Chloride (Normal Saline) 1,000 mls @ 125 mls/hr IV ASDIRECTED [facility] Last Admin: 06/18/17 05:56 Dose: 125 mls/hr Magnesium Sulfate/Dextrose 1 (gm/ Premix) 100 mls @ 100 mls/hr IV ONETIME ONE Stop: 06/17/17 19:38 Last Admin: 06/17/17 19:45 Dose: 100 mls/hr Azithromycin 500 mg/ Sodium (Chloride) 250 mls @ 250 mls/hr IV ONETIME ONE Stop: 06/17/17 19:40 Last Admin: 06/17/17 21:08 Dose: 250 mls/hr Methylprednisolone Sodium Succinate (Solu-Medrol) 125 mg IVPUSH ONETIME ONE Stop: 06/17/17 17:59 Last Admin: 06/17/17 18:30 Dose: 125 mg - Exam General: Reports: Alert, Oriented Neck: Reports: Supple Lungs: Reports: Clear to Auscultation, Normal Respiratory Effort Cardiovascular: Reports: Regular Rate, Regular Rhythm GI/Abdominal Exam: Normal Bowel Sounds, Soft Skin: Reports: Warm, Dry, Intact *Q Meaningful Use (DIS) - VTE *Q VTE Criteria *Q: - Stroke *Q Stroke Criteria *Q: - AMI *Q AMI Criteria *Q:
== END 2017-06-19 13:35 | disposition home or self-care (01) | DRG 203 ==
LOC: DL.ED 12:51 → DL.MS 17:19 → UNDOADMIN 17:19 → DL.MS 17:28
PROVIDERS: ADMIT Internal Medicine; ATTEND Internal Medicine
DX: J20.9 Acute bronchitis, unspecified (principal); R53.1 Weakness; E83.42 Hypomagnesemia; M06.9 Rheumatoid arthritis, unspecified; Z86.19 Personal history of other infectious and parasitic diseases; Z79.52 Long term (current) use of systemic steroids; I10 Essential (primary) hypertension; G62.9 Polyneuropathy, unspecified; M19.90 Unspecified osteoarthritis, unspecified site; F17.210 Nicotine dependence, cigarettes, uncomplicated
CPT/HCPCS: 36415; 71010; 80048; 80053; 80305; 81001; 82150; 83605; 83690; 83735; 84100; 85025; 86140; 87493; 94667; 96360; 97161-GP; 97165-GO; 99285; A9270-GY; J0456; J1650; J2930; J3475; J7030; J7050

== ENCOUNTER 2017-09-29 09:15 | Emergency (ER) | payer MEDICAID ==
[~2017-09-29 09:15] MED LIST: Sodium Chloride 0.9% 10 ML Syringe FLUSH PRN
--- NOTE | 2017-09-29 09:15 | EDM.PDOC ---
ED HPI GENERAL MEDICAL PROBLEM - General Chief Complaint: Abdominal Pain Stated Complaint: IN BY AMBULANCE Time Seen by Provider: 09/29/17 09:15 Source of Information: Reports: Patient, RN, RN Notes Reviewed History Limitations: Reports: No Limitations - History of Present Illness INITIAL COMMENTS - FREE TEXT/NARRATIVE: Pt presents to the ER per [facility] with c/o abdominal pain and weakness. She states she has been unable to get up from the couch for some time. She stopped taking all her medications about 1 month ago, she has not seen her PCP in about 4 months. Pt denies drinking alcohol for the past 6 months, voiding infrequently, unable to get up to the bathroom. She states her mother has been coming into the home to help her. Pt denies fever, chills, N/V/D, CP, SOB. Onset: Gradual Severity: Mild Improves with: Reports: None Worsens with: Reports: None Abdominal Pain Score (Numeric/FACES): 10 - Related Data Allergies Allergy/AdvReac Type Severity Reaction Status Date / Time No Known Allergies Allergy Verified 09/29/17 09:34 Home Meds: Home Meds LORazepam [Ativan] 0.5 mg PO Q8H PRN #20 tablet 04/10/17 [Rx] Folic Acid 1 mg PO DAILY #14 tablet 04/30/17 [Rx] Thiamine [Vitamin B-1] 100 mg PO BEDTIME #14 tablet 04/30/17 [Rx] Phosphorus #1 [Neutra-Phos] 250 mg PO TID 06/02/17 [History] Magnesium Oxide [Magnesium] 400 mg PO TID 30 Days capsule 06/05/17 [Rx] predniSONE [Prednisone] 5 mg PO DAILY 30 Days tablet 06/05/17 [Rx] Lisinopril [Prinivil] 40 mg PO DAILY 06/17/17 [History] Potassium Chloride 20 meq PO TID 06/17/17 [History] Past Medical History HEENT History: Reports: Other (See Below) Other HEENT History: reading glasses Cardiovascular History: Reports: Hypertension Respiratory History: Reports: Other (See Below) Other Respiratory History: bronchitis in past Gastrointestinal History: Reports: Chronic Constipation Genitourinary History: Reports: None Other Genitourinary History: current UTI Other OB/BYN History: Had hysterectory about 10 years ago Musculoskeletal History: Reports: Arthritis, Neck Pain, Chronic, Other (See Below) Other Musculoskeletal History: lower back pain Neurological History: Reports: Neuropathy, Peripheral, Other (See Below) Other Neuro History: numbness/tingling to left leg and bilateral feet Psychiatric History: Reports: Anxiety, Depression Other Psychiatric History: pt denies Endocrine/Metabolic History: Reports: Osteopenia Hematologic History: Reports: Anemia, Other (See Below) (Low potassium and magnesium) - Infectious Disease History Infectious Disease History: Reports: C-Difficile, Chicken Pox Other Infectious Disease History: pt denies - Past Surgical History Female Surgical History: Reports: Hysterectomy, Salpingo-Oophorectomy Social & Family History - Family History Family Medical History: Noncontributory - Tobacco Use Smoking Status *Q: Current Every Day Smoker Years of Tobacco use: 30 Packs/Tins Daily: 1 Used Tobacco, but Quit: No Second Hand Smoke Exposure: Yes - Caffeine Use Caffeine Use: Reports: Coffee - Alcohol Use Days Per Week of Alcohol Use: 4 Number of Drinks Per Day: 2 Total Drinks Per Week: 8 - Recreational Drug Use Recreational Drug Use: No - Living Situation & Occupation Living situation: Reports: Single, Alone ED ROS GENERAL - Review of Systems Review Of Systems: ROS reveals no pertinent complaints other than HPI. ED EXAM, GI/ABD - Physical Exam Exam: See Below Exam Limited By: No Limitations General Appearance: Alert, WD/WN, Mild Distress Eyes: Bilateral: Normal Appearance (scleral icterus) Ears: Normal External Exam, Hearing Grossly Normal Nose: Normal Inspection Throat/Mouth: Other (dry mucous membranes) Head: Atraumatic, Normocephalic Neck: Normal Inspection, Supple, Non-Tender, Full Range of Motion Respiratory/Chest: No Respiratory Distress, Crackles (bases bilaterally) Cardiovascular: Normal Peripheral Pulses, Regular Rate, Rhythm GI/Abdominal Exam: Normal Bowel Sounds, Distended, Tender, Other (ascites). No : Soft, No Distention (Female) Exam: Deferred Rectal (Female) Exam: Deferred Back Exam: Normal Inspection, Full Range of Motion Extremities: No Pedal Edema, Limited Range of Motion Neurological: Alert, Oriented Psychiatric: Normal Affect, Depressed Mood Skin Exam: Jaundice Lymphatic: No Adenopathy Course - Vital Signs Last Recorded V/S: Last Vital Signs Temp 97.4 F 09/29/17 09:22 Pulse 88 09/29/17 09:22 Resp 16 09/29/17 09:22 BP 104/76 09/29/17 09:22 Pulse Ox 100 09/29/17 09:22 - Orders/Labs/Meds Labs: Laboratory Tests 09/29/17 09/29/17 09/29/17 Range/Units 09:20 09:20 09:20 WBC 12.5 H (5.0-10.0) 10^3/uL RBC 3.25 L (4.2-5.4) 10^6/uL Hgb 12.7 D (12.0-16.0) g/dL Hct 35.7 L (37.0-47.0) % MCV 109.8 H (80-100) fL MCH 39.1 H (27.0-34.0) pg MCHC 35.6 H (33.0-35.0) g/dL Plt Count 124 L (150-450) 10^3/uL Neut % (Auto) 70.7 (42.2-75.2) % Lymph % (Auto) 12.7 L (20.5-50.1) % [place] % (Auto) 15.7 H (2-8) % Eos % (Auto) 0.8 L (1.0-3.0) % Baso % (Auto) 0.1 (0.0-1.0) % Add Manual Diff Yes Neutrophils % (Manual) 68 (42-75) % Band Neutrophils % 2 % Lymphocytes % (Manual) 15 L (20-50) % Monocytes % (Manual) 14 H (2-8) % Eosinophils % (Manual) 1 (1-3) % Microcytosis 2+ moderate PT (9.0-12.0) SEC INR (0.9-1.2) Sodium 121 L D (135-145) mmol/L Potassium 3.0 L D (3.6-5.0) mmol/L Chloride 81 L D (101-111) mmol/L Carbon Dioxide 21.0 (21.0-31.0) mmol/L Anion Gap 22.0 BUN 32 H (7-18) mg/dL Creatinine 2.1 H D (0.6-1.3) mg/dL Est Cr Clr Drug Dosing 22.32 mL/min Estimated GFR (MDRD) 24 BUN/Creatinine Ratio 15.23 Glucose 76 (74-105) mg/dL Lactic Acid 3.7 H (0.5-2.2) mmol/L Calcium 8.3 L (8.4-10.2) mg/dl Magnesium 1.7 L (1.8-2.5) mg/dL Total Bilirubin 21.8 H (0.2-1.0) mg/dL GGT (7-64) IU/L AST 253 H (10-42) IU/L ALT 61 H (10-60) IU/L Alkaline Phosphatase 538 H (42-121) IU/L Lactate Dehydrogenase (91-180) IU/L Troponin I 0.06 H* (0.00-0.02) ng/ml Total Protein 6.6 L (6.7-8.2) g/dl Albumin 1.8 L (3.2-5.5) g/dl Globulin 4.8 Albumin/Globulin Ratio 0.38 Amylase (28-100) U/L Lipase (22-51) U/L Urine Color (YELLOW) Urine Appearance (CLEAR) Urine pH (5.0-9.0) Ur Specific [place] (1.005-1.030) Urine Protein (NEGATIVE) Urine Glucose (UA) (NEGATIVE) Urine Ketones (NEGATIVE) Urine Occult Blood (NEGATIVE) Urine Nitrite (NEGATIVE) Urine Bilirubin (NEGATIVE) Urine Urobilinogen (0.2-1.0) mg/dL Ur Leukocyte Esterase (NEGATIVE) Urine RBC /HPF Urine WBC (0-5/HPF) /HPF Ur Epithelial Cells /HPF Amorphous Sediment (0/HPF) /HPF Urine Bacteria (0-FEW/HPF) /HPF Urine Mucus /LPF Urine Opiates Screen (NEGATIVE) Ur Oxycodone Screen (NEGATIVE) Urine Methadone Screen (NEGATIVE) Ur Barbiturates Screen (NEGATIVE) U Tricyclic Antidepress (NEGATIVE) Ur Phencyclidine Scrn (NEGATIVE) Ur Amphetamine Screen (NEGATIVE) U Methamphetamines Scrn (NEGATIVE) Urine MDMA Screen (NEGATIVE) U Benzodiazepines Scrn (NEGATIVE) Urine Cocaine Screen (NEGATIVE) U Marijuana (THC) Screen (NEGATIVE) Ethyl Alcohol < 5 mg/dL 09/29/17 09/29/17 09/29/17 Range/Units 09:20 09:20 09:20 WBC (5.0-10.0) 10^3/uL RBC (4.2-5.4) 10^6/uL Hgb (12.0-16.0) g/dL Hct (37.0-47.0) % MCV (80-100) fL MCH (27.0-34.0) pg MCHC (33.0-35.0) g/dL Plt Count (150-450) 10^3/uL Neut % (Auto) (42.2-75.2) % Lymph % (Auto) (20.5-50.1) % [place] % (Auto) (2-8) % Eos % (Auto) (1.0-3.0) % Baso % (Auto) (0.0-1.0) % Add Manual Diff Neutrophils % (Manual) (42-75) % Band Neutrophils % % Lymphocytes % (Manual) (20-50) % Monocytes % (Manual) (2-8) % Eosinophils % (Manual) (1-3) % Microcytosis PT 13.0 H (9.0-12.0) SEC INR 1.3 H (0.9-1.2) Sodium (135-145) mmol/L Potassium (3.6-5.0) mmol/L Chloride (101-111) mmol/L Carbon Dioxide (21.0-31.0) mmol/L Anion Gap BUN (7-18) mg/dL Creatinine (0.6-1.3) mg/dL Est Cr Clr Drug Dosing mL/min Estimated GFR (MDRD) BUN/Creatinine Ratio Glucose (74-105) mg/dL Lactic Acid (0.5-2.2) mmol/L Calcium (8.4-10.2) mg/dl Magnesium (1.8-2.5) mg/dL Total Bilirubin (0.2-1.0) mg/dL GGT 764 H (7-64) IU/L AST (10-42) IU/L ALT (10-60) IU/L Alkaline Phosphatase (42-121) IU/L Lactate Dehydrogenase 321 H (91-180) IU/L Troponin I (0.00-0.02) ng/ml Total Protein (6.7-8.2) g/dl Albumin (3.2-5.5) g/dl Globulin Albumin/Globulin Ratio Amylase 51 (28-100) U/L Lipase 45 (22-51) U/L Urine Color (YELLOW) Urine Appearance (CLEAR) Urine pH (5.0-9.0) Ur Specific [place] (1.005-1.030) Urine Protein (NEGATIVE) Urine Glucose (UA) (NEGATIVE) Urine Ketones (NEGATIVE) Urine Occult Blood (NEGATIVE) Urine Nitrite (NEGATIVE) Urine Bilirubin (NEGATIVE) Urine Urobilinogen (0.2-1.0) mg/dL Ur Leukocyte Esterase (NEGATIVE) Urine RBC /HPF Urine WBC (0-5/HPF) /HPF Ur Epithelial Cells /HPF Amorphous Sediment (0/HPF) /HPF Urine Bacteria (0-FEW/HPF) /HPF Urine Mucus /LPF Urine Opiates Screen (NEGATIVE) Ur Oxycodone Screen (NEGATIVE) Urine Methadone Screen (NEGATIVE) Ur Barbiturates Screen (NEGATIVE) U Tricyclic Antidepress (NEGATIVE) Ur Phencyclidine Scrn (NEGATIVE) Ur Amphetamine Screen (NEGATIVE) U Methamphetamines Scrn (NEGATIVE) Urine MDMA Screen (NEGATIVE) U Benzodiazepines Scrn (NEGATIVE) Urine Cocaine Screen (NEGATIVE) U Marijuana (THC) Screen (NEGATIVE) Ethyl Alcohol mg/dL 09/29/17 09/29/17 Range/Units 09:41 09:41 WBC (5.0-10.0) 10^3/uL RBC (4.2-5.4) 10^6/uL Hgb (12.0-16.0) g/dL Hct (37.0-47.0) % MCV (80-100) fL MCH (27.0-34.0) pg MCHC (33.0-35.0) g/dL Plt Count (150-450) 10^3/uL Neut % (Auto) (42.2-75.2) % Lymph % (Auto) (20.5-50.1) % [place] % (Auto) (2-8) % Eos % (Auto) (1.0-3.0) % Baso % (Auto) (0.0-1.0) % Add Manual Diff Neutrophils % (Manual) (42-75) % Band Neutrophils % % Lymphocytes % (Manual) (20-50) % Monocytes % (Manual) (2-8) % Eosinophils % (Manual) (1-3) % Microcytosis PT (9.0-12.0) SEC INR (0.9-1.2) Sodium (135-145) mmol/L Potassium (3.6-5.0) mmol/L Chloride (101-111) mmol/L Carbon Dioxide (21.0-31.0) mmol/L Anion Gap BUN (7-18) mg/dL Creatinine (0.6-1.3) mg/dL Est Cr Clr Drug Dosing mL/min Estimated GFR (MDRD) BUN/Creatinine Ratio Glucose (74-105) mg/dL Lactic Acid (0.5-2.2) mmol/L Calcium (8.4-10.2) mg/dl Magnesium (1.8-2.5) mg/dL Total Bilirubin (0.2-1.0) mg/dL GGT (7-64) IU/L AST (10-42) IU/L ALT (10-60) IU/L Alkaline Phosphatase (42-121) IU/L Lactate Dehydrogenase (91-180) IU/L Troponin I (0.00-0.02) ng/ml Total Protein (6.7-8.2) g/dl Albumin (3.2-5.5) g/dl Globulin Albumin/Globulin Ratio Amylase (28-100) U/L Lipase (22-51) U/L Urine Color Green (YELLOW) Urine Appearance Slightly cloudy (CLEAR) Urine pH 5.5 (5.0-9.0) Ur Specific [place] 1.015 (1.005-1.030) Urine Protein 100 H (NEGATIVE) Urine Glucose (UA) 100 H (NEGATIVE) Urine Ketones 15 H (NEGATIVE) Urine Occult Blood Trace-intact H (NEGATIVE) Urine Nitrite Negative (NEGATIVE) Urine Bilirubin Large H (NEGATIVE) Urine Urobilinogen 2.0 H (0.2-1.0) mg/dL Ur Leukocyte Esterase Negative (NEGATIVE) Urine RBC 0-5 /HPF Urine WBC 0-5 (0-5/HPF) /HPF Ur Epithelial Cells Moderate H /HPF Amorphous Sediment Moderate H (0/HPF) /HPF Urine Bacteria Few (0-FEW/HPF) /HPF Urine Mucus Few H /LPF Urine Opiates Screen Negative (NEGATIVE) Ur Oxycodone Screen Negative (NEGATIVE) Urine Methadone Screen Negative (NEGATIVE) Ur Barbiturates Screen Negative (NEGATIVE) U Tricyclic Antidepress Negative (NEGATIVE) Ur Phencyclidine Scrn Negative (NEGATIVE) Ur Amphetamine Screen Negative (NEGATIVE) U Methamphetamines Scrn Negative (NEGATIVE) Urine MDMA Screen Negative (NEGATIVE) U Benzodiazepines Scrn Negative (NEGATIVE) Urine Cocaine Screen Negative (NEGATIVE) U Marijuana (THC) Screen Negative (NEGATIVE) Ethyl Alcohol mg/dL Meds: Medications Discontinued Medications Generic Name Dose Route Start Last Admin Trade Name Freq PRN Reason Stop Dose Admin Thiamine HCl 100 mg/ Sodium 101 mls @ 202 mls/hr 09/29/17 09:45 09/29/17 10: 03 Chloride IV 09/29/17 09:46 202 mls/hr ONETIME ONE Administration Sodium Chloride 1,000 mls @ 150 mls/hr 09/29/17 09:20 09/29/17 09:20 Normal Saline IV 150 mls/hr ASDIRECTED PEARL Administration Sodium Chloride 10 ml 09/29/17 09:15 09/29/17 10:07 Saline Flush FLUSH 10 ml ASDIRECTED PRN Administration Keep Vein Open Departure - Departure Time of Disposition: 10:11 Disposition: DC/Tfer to Acute Hospital 02 Condition: Poor, Serious, Critical Clinical Impression: End-stage liver disease - Discharge Information Referrals: PCP,Unobtain [Primary Care Provider] - Forms: ED Department Discharge, Interfacility Transfer JOLENE
[2017-09-29] MEDS ORDERED: Sodium Chloride 0.9% 1,000 ML IV SCH (09:20)
[2017-09-29 09:31] VITALS: BP 104/76
[2017-09-29] MEDS ORDERED: Thiamine 100 MG in Sodium Chloride 0.9% 100 ML IV ONE (09:45)
[2017-09-29 09:49] LABS: CHLORIDE,CL 81 mmol/L (101-111); SODIUM,NA 121 mmol/L (135-145)
--- NOTE | 2017-09-30 12:17 | EKG ---
09/29/2017 - R[facility] LAZO - This 12-lead EKG shows a normal sinus rhythm with a ventricular rate of 84. Normal axis and intervals. Poor R-wave progression in the precordial leads. No acute ST-segment or T-wave changes. [facility] /[id number] MTDD
== END 2017-09-29 10:50 ==
LOC: DL.ED 09:15
DX: K72.90 Hepatic failure, unspecified without coma (principal); I10 Essential (primary) hypertension; F17.210 Nicotine dependence, cigarettes, uncomplicated; Z79.899 Other long term (current) drug therapy
CPT/HCPCS: 36415; 80053; 80305; 81001; 82150; 82977; 83605; 83615; 83690; 83735; 84484; 85025; 85610; 87040; 93005; 96361; 96365; 99285; G0480; J3411; J7030; J7050